=== PATIENT | male | born 1965 | race Caucasian/White ===

== ENCOUNTER 2016-04-27 19:17 | Emergency (ER) | payer MEDICAID, OTHER ==
[~2016-04-27] VITALS: Ht 177.8 cm; Wt 54.4 kg
[2016-04-27] MEDS ORDERED: IPRATROPIUM 0.5MG/ALBUTEROL 2.5MG INH SOL UD 3ML (DUONEB)(J7620) NEB ONE (23:00)
[2016-04-27 23:50] LABS: BASO % 0.7 % (0.0-1.0); EOS # 0.2 K/mm3 (0.0-0.50); EOS % 3.8 % (0.0-3.0); LARGE UNSTAINED CELL # 0.2 K/mm3 (0.0-0.4); LARGE UNSTAINED CELL % 3.7 % (0.0-4.0); LYMPH # 1.6 K/mm3 (1.5-4.5); LYMPH % 29.8 % (24.0-44.0); MEAN CORPUSCULAR HEMOGLOBIN 32.9 pg (27.0-33.0); MEAN CORPUSCULAR VOLUME 99.5 fl (80.0-96.0); MONO # 0.5 K/mm3 (0.0-0.8); MONO % 8.4 % (0.0-5.0); NEUTROPHILS # 2.9 K/mm3 (1.8-7.7); NEUTROPHILS % 53.7 % (36.0-66.0); PLATELET COUNT, AUTOMATED 275 k/mm3 (150-450); RED CELL DISTRIBUTION WIDTH 12.3 % (11.5-14.5); WHITE BLOOD COUNT 5.4 K/mm3 (4.0-10.0)
[2016-04-28 00:12] LABS: ANION GAP 10 MEQ/L (8-16); BLOOD UREA NITROGEN 4 MG/DL (7-18); CALCIUM LEVEL 8.8 MG/DL (8.5-10.1); CARBON DIOXIDE LEVEL 25 MEQ/L (21-32); CHLORIDE LEVEL 105 MEQ/L (98-107); GLOMERULAR FILTRATION RATE > 60.0 (>60); GLUCOSE, FASTING 82 MG/DL (70-105); POTASSIUM SERUM 4.5 MEQ/L (3.5-5.1); SODIUM LEVEL 140 MEQ/L (136-145)
[2016-04-28 00:19] LABS: ALBUMIN 3.9 GM/DL (3.2-5.2); ALBUMIN/GLOBULIN RATIO 1.05 (1.00-1.93); BILIRUBIN,DIRECT 0.2 MG/DL (0.0-0.2); BILIRUBIN,TOTAL 0.3 MG/DL (0.2-1.0); THYROXINE (T4) 6.2 UG/DL (4.5-12.0); TOTAL PROTEIN 7.6 GM/DL (6.4-8.2)
[2016-04-28] MEDS ORDERED: OXAZEPAM 15 MG CAP PO ONE (00:45)
[2016-04-28 00:54] VITALS: BP 156/104
--- NOTE | 2016-04-28 06:35 | ECGEPIP ---
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
--- NOTE | 2016-04-28 09:19 | REP ---
TWO VIEW CHEST: Two views of the chest were performed and compared to prior study of 12/15/2015 as well as other prior exams. Scattered fibrotic changes appear stable with no evidence of acute infiltrate. The heart is normal in size. Mediastinal silhouette is unchanged. Metallic plate and screws are seen in the lower cervical spine. IMPRESSION: Stable chronic findings without evidence of acute infiltrate. Signed by Jose Dykes MD 04/28/2016 04:13 P
== END 2016-04-28 00:57 | disposition home or self-care (01) ==
LOC: M ED 22:49
DX: R06.02 Shortness of breath (principal); F41.9 Anxiety disorder, unspecified; F10.10 Alcohol abuse, uncomplicated; R74.8 Abnormal levels of other serum enzymes; J44.9 Chronic obstructive pulmonary disease, unspecified; Z87.09 Personal history of other diseases of the respiratory system; F17.210 Nicotine dependence, cigarettes, uncomplicated

== ENCOUNTER → 2016-06-03 | Outpatient (CLI) | payer OTHER ==
--- NOTE | 2016-06-03 10:18 | REP ---
RIGHT UPPER QUADRANT ULTRASOUND: Real-time sonographic evaluation of the right upper quadrant performed. The gallbladder demonstrates no evidence of intraluminal sludge or calculi, wall thickening or pericholecystic fluid. There is no intrahepatic or extrahepatic biliary dilatation, common bile duct measuring 2 mm in diameter. The liver and pancreas demonstrate homogeneous echotexture with no gross mass. Right kidney demonstrates no hydronephrosis or nephrolithiasis with normal size at 11.2 cm in length. A right renal cyst measures 1.3 cm in diameter. IMPRESSION: Essentially negative right upper quadrant ultrasound.
== END ==
LOC: M WHC 08:58
PROVIDERS: ATTEND Physician Assistant
DX: R94.5 Abnormal results of liver function studies (principal)

== ENCOUNTER 2016-07-07 08:29 | Inpatient (IN) | payer OTHER ==
[~2016-07-07] VITALS: Ht 177.8 cm; Wt 58.6 kg
[2016-07-07] MEDS ORDERED: CELE20TA PO (08:45)
[2016-07-07] MEDS ORDERED: LORazepam 2 MG/ML VIAL (J2060) IV STA ×4 (09:05→13:52)
[2016-07-07] MEDS ORDERED: NS 1,000 ML IV ONE (09:15)
[2016-07-07 09:54] LABS: BASO % 0.4 % (0.0-1.0); EOS % 0.5 % (0.0-3.0); LARGE UNSTAINED CELL # 0.1 K/mm3 (0.0-0.4); LARGE UNSTAINED CELL % 1.3 % (0.0-4.0); LYMPH # 0.6 K/mm3 (1.5-4.5); LYMPH % 8.4 % (24.0-44.0); MEAN CORPUSCULAR HEMOGLOBIN 34.7 pg (27.0-33.0); MEAN CORPUSCULAR VOLUME 102.1 fl (80.0-96.0); MONO # 0.6 K/mm3 (0.0-0.8); MONO % 7.7 % (0.0-5.0); NEUTROPHILS # 5.9 K/mm3 (1.8-7.7); NEUTROPHILS % 81.7 % (36.0-66.0); PLATELET COUNT, AUTOMATED 247 k/mm3 (150-450); RED CELL DISTRIBUTION WIDTH 12.8 % (11.5-14.5); WHITE BLOOD COUNT 7.2 K/mm3 (4.0-10.0)
[2016-07-07 10:17] LABS: ALBUMIN 3.6 GM/DL (3.2-5.2); ALBUMIN/GLOBULIN RATIO 1.09 (1.00-1.93); ALKALINE PHOSPHATASE 132 U/L (45-117); ALT/SGPT 93 U/L (12-78); ANION GAP 9 MEQ/L (8-16); AST/SGOT 97 U/L (15-37); BILIRUBIN,DIRECT 0.2 MG/DL (0.0-0.2); BILIRUBIN,TOTAL 0.4 MG/DL (0.2-1.0); BLOOD UREA NITROGEN 5 MG/DL (7-18); CALCIUM LEVEL 8.6 MG/DL (8.5-10.1); CARBON DIOXIDE LEVEL 25 MEQ/L (21-32); CHLORIDE LEVEL 103 MEQ/L (98-107); CREATININE FOR GFR 0.71 MG/DL (0.70-1.30); GLOMERULAR FILTRATION RATE > 60.0 (>60); GLUCOSE, FASTING 107 MG/DL (70-105); POTASSIUM SERUM 4.6 MEQ/L (3.5-5.1); SODIUM LEVEL 137 MEQ/L (136-145); TOTAL PROTEIN 6.9 GM/DL (6.4-8.2)
[2016-07-07] MEDS ORDERED: ASPIRIN 81 MG CHEW TABLET PO ONE (12:00)
[2016-07-07] MEDS ORDERED: ISOVUE-370 76% 100ML VIAL (Q9967) As Ordered ONE (12:05)
--- NOTE | 2016-07-07 12:45 | REP ---
Clinical: Acute chest pain. Comparison: 10/04/2015 Technique: Axial contrast enhanced images from the thoracic inlet to the upper abdomen using 100 ml Isovue 370 intravenous contrast material with coronal and sagittal re-formations. Findings: Satisfactory enhancement of the pulmonary vasculature is achieved and no filling defects are identified to suggest pulmonary embolus. Thoracic aorta is normal caliber without aneurysm or dissection. Heart and pericardium are normal. There is evidence for moderate chronic COPD and emphysematous changes primarily involving the upper lung zones/apices with scattered areas of scarring/fibrosis. Findings are similar to prior examination. No acute pulmonary consolidation, nodule or mass lesion identified. No pleural effusion/reaction or pneumothorax. No significant axillary, hilar, or mediastinal adenopathy. Musculoskeletal structures without focal osseous abnormality. Impression: 1. No evidence for pulmonary embolus. 2. No acute pleuroparenchymal or mediastinal process. 3. Advanced COPD/emphysematous changes with scattered and predominantly apical scarring similar to 2016. Signed by Tam Roque MD 07/07/2016 12:36 P
--- NOTE | 2016-07-07 12:48 | REP ---
Clinical: Chest and abdominal pain. Technique: Axial contrast enhanced images from the thoracic inlet to the upper abdomen using 100 ml Isovue 370 intravenous contrast material with coronal and sagittal re-formations. Findings: Diffuse fatty infiltration the liver is appreciated without focal hepatic lesion identified. Spleen, pancreas, gallbladder, bilateral adrenal glands and kidneys are normal. The enteric system is without obstruction or acute inflammatory process. Scattered diverticula noted without acute diverticulitis. Pelvis demonstrates normal bladder and age appropriate prostate/seminal vesicles. No ascites. No free air. No intraperitoneal or retroperitoneal adenopathy. Mild/moderate atherosclerotic changes to the abdominal aorta and vasculature noted without aneurysm or dissection. Musculoskeletal structures without focal osseous abnormality. Lung bases demonstrate chronic changes. Visualized portions of the heart and pericardium normal. Impression: 1. Hepatosteatosis without focal hepatic lesion identified. 2. Colonic diverticula without acute diverticulitis. 3. No acute intra-abdominal or pelvic pathology otherwise appreciated. Signed by Tam Roque MD 07/07/2016 12:39 P
[2016-07-07] MEDS ORDERED: amLODIPine 5 MG TAB PO ONE (16:30)
[2016-07-07] MEDS ORDERED: ALBU17IN INH (18:43)
[2016-07-07] MEDS ORDERED: ACET-654 PO (18:43)
[2016-07-07] MEDS ORDERED: ALBUTEROL 90 MCG/ACT 8GM HFA INHALER INH PRN (19:00)
[2016-07-07] MEDS ORDERED: hydrALAZINE INJ 20 MG/ML VIAL IV ONE (19:00)
[2016-07-07 19:11] LABS: METHADONE URINE NEGATIVE (NEGATIVE)
[2016-07-07 20:00] VITALS: BP 159/87
[2016-07-07] MEDS: OXAZEPAM 10 MG CAP PO SCH (20:31)
[2016-07-07] MEDS: ENOXAPARIN 40 MG/0.4 ML SYRINGE (J1650) SC SCH (20:31)
[2016-07-07 21:00] VITALS: BP 154/69
[2016-07-07] MEDS ORDERED: MULTIVITAMIN -ADULT INJECTION 10 ML, THIAMINE INJection 100 MG, FOLIC ACID 1 MG in NS 1... IV ONE (21:00)
--- NOTE | 2016-07-07 21:09 | ECGEPIP ---
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
--- NOTE | 2016-07-07 21:19 | ECGEPIP ---
Stationary ECG Study 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 LAE CW 07/07/16 - RATE INCREASED Electronically Signed On 07-07-2016 21:18:56 EDT by Tyshawn Shelley
[2016-07-07] MEDS: ONDANSETRON 4MG/2ML VIAL (J2405) IV PRN (21:50)
[2016-07-07] MEDS: ACETAMINOPHEN TAB 650MG DOSE (2X325MG) PO PRN (21:51)
[2016-07-07 22:00] VITALS: BP 148/82
[2016-07-07 23:00] VITALS: BP 139/83
[2016-07-08] VITALS (12 sets, daily range): BP systolic 134–165; BP diastolic 75–101
[2016-07-08 05:01] LABS: BASO % 0.5 % (0.0-1.0); EOS # 0.1 K/mm3 (0.0-0.50); EOS % 1.7 % (0.0-3.0); LARGE UNSTAINED CELL # 0.1 K/mm3 (0.0-0.4); LYMPH # 1.1 K/mm3 (1.5-4.5); LYMPH % 18.7 % (24.0-44.0); MEAN CORPUSCULAR HEMOGLOBIN 34.6 pg (27.0-33.0); MEAN CORPUSCULAR HGB CONC 33.9 g/dl (32.0-36.5); MONO # 0.6 K/mm3 (0.0-0.8); MONO % 10.9 % (0.0-5.0); NEUTROPHILS # 3.7 K/mm3 (1.8-7.7); NEUTROPHILS % 66.2 % (36.0-66.0); PLATELET COUNT, AUTOMATED 203 k/mm3 (150-450); RED CELL DISTRIBUTION WIDTH 13.1 % (11.5-14.5); WHITE BLOOD COUNT 5.5 K/mm3 (4.0-10.0)
[2016-07-08 05:31] LABS: ALBUMIN 2.9 GM/DL (3.2-5.2); ALBUMIN/GLOBULIN RATIO 0.85 (1.00-1.93); ALKALINE PHOSPHATASE 114 U/L (45-117); ALT/SGPT 74 U/L (12-78); ANION GAP 6 MEQ/L (8-16); AST/SGOT 76 U/L (15-37); BILIRUBIN,TOTAL 0.6 MG/DL (0.2-1.0); BLOOD UREA NITROGEN 7 MG/DL (7-18); CALCIUM LEVEL 8.1 MG/DL (8.5-10.1); CARBON DIOXIDE LEVEL 27 MEQ/L (21-32); CHLORIDE LEVEL 105 MEQ/L (98-107); GLOMERULAR FILTRATION RATE > 60.0 (>60); GLUCOSE, FASTING 80 MG/DL (70-105); MAGNESIUM LEVEL 2.1 MG/DL (1.8-2.4); POTASSIUM SERUM 3.8 MEQ/L (3.5-5.1); SODIUM LEVEL 138 MEQ/L (136-145); TOTAL PROTEIN 6.3 GM/DL (6.4-8.2)
[2016-07-08] MEDS: OXAZEPAM 10 MG CAP PO SCH (08:06)
[2016-07-08] MEDS: CYANOCOBALAMIN 500 MCG TAB PO SCH (08:06)
[2016-07-08] MEDS: THIAMINE 100 MG TAB PO SCH (08:07)
[2016-07-08] MEDS: amLODIPine 5 MG TAB PO SCH (08:07)
[2016-07-08] MEDS: FOLIC ACID 1 MG TAB PO SCH (08:07)
[2016-07-08] MEDS: CitaloPRAM (CeleXA) 20 MG TAB PO SCH (08:07)
[2016-07-08] MEDS: ONDANSETRON 4MG/2ML VIAL (J2405) IV PRN ×2 (08:52→15:34)
--- NOTE | 2016-07-08 09:05 | IPNPDOC ---
Subjective Date Seen The patient was seen on 07/08/16. Subjective Chief Complaint/HPI The patient is a 51-year-old male admitted with a reason for visit of Alcohol Withdrawal Syndrome. Events since last encounter 51 yo male with past hx of ETOH abuse, had been sober for 16 years. recent relapse in last 6-9months due to anxiety. On wait list for [facility] for counseling. Drinks 6-12 beers throughout the day every day. Stopped drinking Thursday and started withdrawal symptoms: vomiting, shakes, sweats within a few hours. brought himself to ED yesterday morning for uncontrolled withdrawl symptoms. Was in contact with [facility] for detox admission, yet was wait- listed. Today notes improvement in symptoms with use of Serax, Ativan and Zofran prn Constitutional: Denies: Chills, Fever, Night Sweats Skin: Denies: Rash, Lesions, Breakdown Pulmonary: Denies: Dyspnea, Cough Cardiovascular: Denies: Chest Pain, Palpitations, Orthopnea, Paroxysmal Noc. Dyspnea, Lt Headedness Gastrointestinal: Reports: Nausea, Vomiting, Denies: Abdominal Pain, Diarrhea, Constipation Genitourinary: Denies: Dysuria, Frequency, Incontinence, Retention Psych: Reports: Anxiety, Denies: Thoughts of Self Harm Objective Physical Examination General Exam: Positive: Alert, No Acute Distress ENT Exam: Positive: Atraumatic, Mucous membr. moist/pink, Pharynx Normal Neck Exam: Positive: Supple, Negative: JVD, thyromegaly Chest Exam: Positive: Clear to auscultation, Normal air movement Heart Exam: Positive: Rate Normal, Regular Rhythm, Normal S1, Normal S2, Negative: Murmurs, Rubs Telemetry: Positive: No significant arrhythmia Abdomen Exam: Positive: Normal bowel sounds, Soft, Negative: Tenderness, Hepatospenomegaly Extremity Exam: Positive: Normal pulses, Negative: Clubbing, Cyanosis, Edema Skin Exam: Positive: Nl turgor and temperature, Negative: Rash, Breakdown Neuro Exam: Positive: Other (mild tremors noted. ) Psych Exam: Positive: Anxiety, Oriented x 3 Assessment /Plan Problems (1) Alcohol withdrawal syndrome Status: Acute Response to Treatment: Improving Problem Specific Plan: Monitor Clinically Problem Text: Continue with Serax, lorazepam prn. Monitor. (2) Alcohol abuse Status: Chronic Problem Text: will need addictions counseling post hospitalization. Consider long Serax taper as outpatient. (3) Anxiety reaction Status: Acute Problem Text: Was placed on Celexa outpatient in December 2015. Never followed up. (4) Elevated liver enzymes Status: Acute Problem Text: liver US. hepatitis panel pending. Plan/VTE VTE Prophylaxis Ordered?: Yes (Lovenox) Plan Attending note: I saw and evaluated the patient, and agree with the plan of care as discussed and documented by Kellie Mathew. Patient currently does not have a plan to stay sober. He attributes much of his drinking to his mood, however does not wish to change his medications until his withdrawal symptoms improved. He is currently on Celexa 10 mg daily. Mitchell Workman MD VS, I&O, 24H, [facility] Vital Signs/I&O Vital Signs Date Time Temp Pulse Resp B/P (MAP) Pulse Ox O2 Delivery O2 Flow Rate FiO2 07/08/16 08:07 106 145/95 07/08/16 08:06 99.1 18 96 Room Air I&O- Last 24 Hours up to 6 AM 07/08/16 05:59 Intake Total 1910 ml Output Total 0 ml Balance 1910 ml Laboratory Data 24H LABS Laboratory Tests 2 07/07/16 09:38: Anion Gap 9, Glomerular Filtration Rate > 60.0, Calcium Level 8.6, Aspartate Amino Transf (AST/SGOT) 97H, Alanine Aminotransferase (ALT/SGPT) 93H, Alkaline Phosphatase 132H, Total Bilirubin 0.4, Direct Bilirubin 0.2, Total Protein 6.9, Albumin 3.6, Albumin/Globulin Ratio 1.09, Thyroid Stimulating Hormone (TSH) 2.050, Salicylates Level 5.0, Acetaminophen Level < 2.0L, Ethyl Alcohol Level < 0.003 07/07/16 09:39: White Blood Count 7.2, Red Blood Count 4.72, Hemoglobin 16.4, Hematocrit 48.1, Mean Corpuscular Volume 102.1H, Mean Corpuscular Hemoglobin 34.7H, Mean Corpuscular Hemoglobin Concent 34.0, Red Cell Distribution Width 12.8, Platelet Count 247, Neutrophils (%) (Auto) 81.7H, Lymphocytes (%) (Auto) 8.4L, Monocytes (%) (Auto) 7.7H, Eosinophils (%) (Auto) 0.5, Basophils (%) (Auto) 0.4, Neutrophils # (Auto) 5.9, Lymphocytes # (Auto) 0.6L, Monocytes # (Auto) 0.6, Eosinophils # (Auto) 0.0, Basophils # (Auto) 0.0, Large Unclassified Cells % 1.3 , Large Unclassified Cells # 0.1, Total Creatine Kinase 78, Creatine Kinase MB 1.0, Creatine Kinase MB Relative Index 1.28, Troponin I < 0.02 07/07/16 14:18: Total Creatine Kinase 75, Creatine Kinase MB 1.0, Creatine Kinase MB Relative Index 1.33, Troponin I < 0.02 07/07/16 18:27: Urine Amphetamines Screen NEGATIVE, Urine Benzodiazepines Screen NEGATIVE, Urine Opiates Screen NEGATIVE, Urine Methadone Screen NEGATIVE, Urine Barbiturates Screen NEGATIVE, Urine Phencyclidine Screen NEGATIVE, Urine Cocaine Metabolite Screen NEGATIVE, Urine Cannabinoids Screen NEGATIVE 07/08/16 04:38: White Blood Count 5.5, Red Blood Count 4.31, Hemoglobin 14.9, Hematocrit 44.0, Mean Corpuscular Volume 102.0H, Mean Corpuscular Hemoglobin 34.6H, Mean Corpuscular Hemoglobin Concent 33.9, Red Cell Distribution Width 13.1, Platelet Count 203, Neutrophils (%) (Auto) 66.2H, Lymphocytes (%) (Auto) 18.7L, Monocytes (%) (Auto) 10.9H, Eosinophils (%) (Auto) 1.7, Basophils (%) (Auto) 0.5 , Neutrophils # (Auto) 3.7, Lymphocytes # (Auto) 1.1L, Monocytes # (Auto) 0.6, Eosinophils # (Auto) 0.1, Basophils # (Auto) 0.0, Large Unclassified Cells % 2.0 , Large Unclassified Cells # 0.1, Anion Gap 6L, Glomerular Filtration Rate > 60.0, Blood Urea Nitrogen 7, Creatinine 0.60L, Sodium Level 138, Potassium Level 3.8, Chloride Level 105, Carbon Dioxide Level 27, Calcium Level 8.1L, Aspartate Amino Transf (AST/SGOT) 76H, Alanine Aminotransferase (ALT/SGPT) 74, Alkaline Phosphatase 114, Total Bilirubin 0.6, Total Protein 6.3L, Albumin 2.9L , Magnesium Level 2.1, Albumin/Globulin Ratio 0.85L CBC/BMP Laboratory Tests 07/07/16 09:38 07/07/16 09:39 Red Blood Count 4.72, Mean Corpuscular Volume 102.1 H, Mean Corpuscular Hemoglobin 34.7 H, Mean Corpuscular Hemoglobin Concent 34.0, Red Cell Distribution Width 12.8, Neutrophils (%) (Auto) 81.7 H, Lymphocytes (%) (Auto) 8.4 L, Monocytes (%) (Auto) 7.7 H, Eosinophils (%) (Auto) 0.5, Basophils (%) ( Auto) 0.4, Neutrophils # (Auto) 5.9, Lymphocytes # (Auto) 0.6 L, Monocytes # ( Auto) 0.6, Eosinophils # (Auto) 0.0, Basophils # (Auto) 0.0 07/08/16 04:38 Red Blood Count 4.31, Mean Corpuscular Volume 102.0 H, Mean Corpuscular Hemoglobin 34.6 H, Mean Corpuscular Hemoglobin Concent 33.9, Red Cell Distribution Width 13.1, Neutrophils (%) (Auto) 66.2 H, Lymphocytes (%) (Auto) 18.7 L, Monocytes (%) (Auto) 10.9 H, Eosinophils (%) (Auto) 1.7, Basophils (%) ( Auto) 0.5, Neutrophils # (Auto) 3.7, Lymphocytes # (Auto) 1.1 L, Monocytes # ( Auto) 0.6, Eosinophils # (Auto) 0.1, Basophils # (Auto) 0.0, Calcium Level 8.1 L , Aspartate Amino Transf (AST/SGOT) 76 H, Alanine Aminotransferase (ALT/SGPT) 74 , Alkaline Phosphatase 114, Total Bilirubin 0.6, Total Protein 6.3 L, Albumin 2.9 L Radha Mathew July 08, 2016 09:05 MITCHELL WORKMAN MD July 11, 2016 13:56
[2016-07-08] MEDS: OXAZEPAM 15 MG CAP PO SCH ×2 (13:12→21:33)
[2016-07-08] MEDS: NS 1,000 ML IV SCH (15:32)
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
[2016-07-08] MEDS: ACETAMINOPHEN TAB 650MG DOSE (2X325MG) PO PRN (19:47)
[2016-07-08] MEDS: LORazepam 2 MG/ML VIAL (J2060) IV PRN (20:14)
[2016-07-08] MEDS: ENOXAPARIN 40 MG/0.4 ML SYRINGE (J1650) SC SCH (20:14)
[2016-07-08] MEDS ORDERED: SODIUM CHLORIDE NASAL 0.65% SPRAY BTL (OCEAN) PRN (20:15)
[2016-07-09] MEDS: NS 1,000 ML IV SCH (02:46)
[2016-07-09] MEDS: LORazepam 2 MG/ML VIAL (J2060) IV PRN ×4 (02:46→20:44)
[2016-07-09] MEDS: OXAZEPAM 15 MG CAP PO SCH ×3 (05:45→22:28)
[2016-07-09 05:59] LABS: BASO % 0.8 % (0.0-1.0); EOS # 0.1 K/mm3 (0.0-0.50); EOS % 2.4 % (0.0-3.0); LARGE UNSTAINED CELL # 0.2 K/mm3 (0.0-0.4); LARGE UNSTAINED CELL % 4.3 % (0.0-4.0); LYMPH # 1.3 K/mm3 (1.5-4.5); LYMPH % 26.1 % (24.0-44.0); MEAN CORPUSCULAR HEMOGLOBIN 34.7 pg (27.0-33.0); MEAN CORPUSCULAR HGB CONC 33.8 g/dl (32.0-36.5); MEAN CORPUSCULAR VOLUME 102.6 fl (80.0-96.0); MONO # 0.6 K/mm3 (0.0-0.8); MONO % 12.1 % (0.0-5.0); NEUTROPHILS # 2.6 K/mm3 (1.8-7.7); NEUTROPHILS % 54.3 % (36.0-66.0); PLATELET COUNT, AUTOMATED 206 k/mm3 (150-450); RED CELL DISTRIBUTION WIDTH 12.5 % (11.5-14.5); WHITE BLOOD COUNT 4.8 K/mm3 (4.0-10.0)
[2016-07-09 06:00] VITALS: BP 160/94
[2016-07-09 06:15] LABS: ALBUMIN 2.8 GM/DL (3.2-5.2); ALBUMIN/GLOBULIN RATIO 0.88 (1.00-1.93); ALKALINE PHOSPHATASE 102 U/L (45-117); ALT/SGPT 57 U/L (12-78); ANION GAP 4 MEQ/L (8-16); AST/SGOT 49 U/L (15-37); BILIRUBIN,TOTAL 0.6 MG/DL (0.2-1.0); BLOOD UREA NITROGEN 7 MG/DL (7-18); CALCIUM LEVEL 8.3 MG/DL (8.5-10.1); CARBON DIOXIDE LEVEL 30 MEQ/L (21-32); CHLORIDE LEVEL 107 MEQ/L (98-107); CREATININE FOR GFR 0.69 MG/DL (0.70-1.30); GLOMERULAR FILTRATION RATE > 60.0 (>60); GLUCOSE, FASTING 78 MG/DL (70-105); MAGNESIUM LEVEL 2.4 MG/DL (1.8-2.4); SODIUM LEVEL 141 MEQ/L (136-145)
--- NOTE | 2016-07-09 08:27 | IPNPDOC ---
Subjective Date Seen The patient was seen on 07/09/16. Subjective Chief Complaint/HPI The patient is a 51-year-old male admitted with a reason for visit of Alcohol Withdrawal Syndrome. Events since last encounter Patient states improving. Develops shakes and withdrawal symptoms intermittently. Received 2 doses of IV Lorazepam in last 12 hours. Tolerating Serax 15 mg po q 8 hrs. Also hx of smoking 1/2 to 1 ppd. Has nicotine patch at home, yet is not utilizing the patch at home. Constitutional: Denies: Chills, Fever, Night Sweats Pulmonary: Denies: Dyspnea, Cough Cardiovascular: Denies: Chest Pain, Palpitations, Orthopnea, Paroxysmal Noc. Dyspnea, Lt Headedness Gastrointestinal: Denies: Nausea, Vomiting, Abdominal Pain, Diarrhea, Constipation Psych: Reports: Mood Normal, Anxiety, Other Psych, Denies: Depression, Memory Issues Objective Physical Examination General Exam: Positive: Alert, No Acute Distress ENT Exam: Positive: Atraumatic, Mucous membr. moist/pink, Pharynx Normal Neck Exam: Positive: Supple, Negative: JVD, thyromegaly Chest Exam: Positive: Clear to auscultation, Normal air movement Heart Exam: Positive: Rate Normal, Regular Rhythm, Normal S1, Normal S2, Negative: Murmurs, Rubs Telemetry: Positive: No significant arrhythmia Abdomen Exam: Positive: Normal bowel sounds, Soft, Negative: Tenderness, Hepatospenomegaly Extremity Exam: Positive: Normal pulses, Negative: Clubbing, Cyanosis, Edema Skin Exam: Positive: Nl turgor and temperature, Negative: Rash, Breakdown Neuro Exam: Positive: Other (mild tremors noted. ) Psych Exam: Positive: Anxiety, Oriented x 3 Assessment /Plan Problems (1) Alcohol withdrawal syndrome Status: Acute Response to Treatment: Improving Problem Specific Plan: Monitor Clinically Problem Text: Continue with Serax, lorazepam prn. Monitor. PFS consulted to evaluate possibility of rehab/addictions counseling. Will add on Nicotine patch to assist with Nicotine withdrawal symptoms. (2) Alcohol abuse Status: Chronic Problem Text: will need addictions counseling post hospitalization. Consider long Serax taper as outpatient. (3) Anxiety reaction Status: Acute Problem Text: Was placed on Celexa outpatient in December 2015. Never followed up. (4) Elevated liver enzymes Status: Acute Problem Text: liver US. hepatitis panel pending. Plan/VTE VTE Prophylaxis Ordered?: Yes (Lovenox) Plan Attending note: I saw and evaluated the patient, and agree with plan of care as discussed and documented by Kellie Mathew. Patient continues to have significant withdrawal symptoms, and is on moderate dose of long-acting benzodiazepine. He will likely need several more days to taper off of this. Mitchell Workman MD VS, I&O, 24H, Fishbone Vital Signs/I&O Vital Signs Date Time Temp Pulse Resp B/P (MAP) Pulse Ox O2 Delivery O2 Flow Rate FiO2 07/09/16 06:00 97.6 71 18 160/94 (116) 97 07/08/16 20:25 Room Air I&O- Last 24 Hours up to 6 AM 07/09/16 05:59 Intake Total 1365 ml Output Total 1300 ml Balance 65 ml Laboratory Data 24H LABS Laboratory Tests 2 07/09/16 05:32: White Blood Count 4.8, Red Blood Count 4.31, Hemoglobin 15.0, Hematocrit 44.2, Mean Corpuscular Volume 102.6H, Mean Corpuscular Hemoglobin 34.7H, Mean Corpuscular Hemoglobin Concent 33.8, Red Cell Distribution Width 12.5, Platelet Count 206, Neutrophils (%) (Auto) 54.3, Lymphocytes (%) (Auto) 26.1, Monocytes ( %) (Auto) 12.1H, Eosinophils (%) (Auto) 2.4, Basophils (%) (Auto) 0.8, Neutrophils # (Auto) 2.6, Lymphocytes # (Auto) 1.3L, Monocytes # (Auto) 0.6, Eosinophils # (Auto) 0.1, Basophils # (Auto) 0.0, Large Unclassified Cells % 4.3H, Large Unclassified Cells # 0.2, Anion Gap 4L, Glomerular Filtration Rate > 60.0, Blood Urea Nitrogen 7, Creatinine 0.69L, Sodium Level 141, Potassium Level 4.0, Chloride Level 107, Carbon Dioxide Level 30, Calcium Level 8.3L, Aspartate Amino Transf (AST/SGOT) 49H, Alanine Aminotransferase (ALT/SGPT) 57, Alkaline Phosphatase 102, Total Bilirubin 0.6, Total Protein 6.0L, Albumin 2.8L , Magnesium Level 2.4, Albumin/Globulin Ratio 0.88L CBC/BMP Laboratory Tests 07/09/16 05:32 Red Blood Count 4.31, Mean Corpuscular Volume 102.6 H, Mean Corpuscular Hemoglobin 34.7 H, Mean Corpuscular Hemoglobin Concent 33.8, Red Cell Distribution Width 12.5, Neutrophils (%) (Auto) 54.3, Lymphocytes (%) (Auto) 26.1, Monocytes (%) (Auto) 12.1 H, Eosinophils (%) (Auto) 2.4, Basophils (%) ( Auto) 0.8, Neutrophils # (Auto) 2.6, Lymphocytes # (Auto) 1.3 L, Monocytes # ( Auto) 0.6, Eosinophils # (Auto) 0.1, Basophils # (Auto) 0.0, Calcium Level 8.3 L , Aspartate Amino Transf (AST/SGOT) 49 H, Alanine Aminotransferase (ALT/SGPT) 57 , Alkaline Phosphatase 102, Total Bilirubin 0.6, Total Protein 6.0 L, Albumin 2.8 L Radha Mathew July 09, 2016 08:27 MITCHELL WORKMAN MD July 11, 2016 13:58
[2016-07-09] MEDS: NICOTINE 14 MG/24 HR TRANSDERMAL TD SCH (08:43)
--- NOTE | 2016-07-09 09:33 | REP ---
Clinical: EtOH abuse with elevated liver function tests. Technique: Dykes scale ultrasound using curved array transducer. Findings: The liver and pancreas are normal in contour, size, and echogenicity without focal hepatic or pancreatic lesions identified. The gallbladder is normal without gallstones, wall thickening or pericholecystic fluid. No biliary ductal dilatation is appreciated, and the common bile duct measures 4.1 mm diameter. The right kidney is normal in reniform shape without hydronephrosis and measures 11.1 x 5.7 x 4.4 cm and includes 11 mm mid pole cyst. No ascites. Visualized portions of the abdominal aorta normal. Impression: Essentially normal right upper quadrant and gallbladder abdominal ultrasound. Signed by Tam Roque MD 07/09/2016 09:24 A
[2016-07-09] MEDS: CitaloPRAM (CeleXA) 20 MG TAB PO SCH (09:41)
[2016-07-09] MEDS: THIAMINE 100 MG TAB PO SCH (09:41)
[2016-07-09] MEDS: CYANOCOBALAMIN 500 MCG TAB PO SCH (09:41)
[2016-07-09] MEDS: FOLIC ACID 1 MG TAB PO SCH (09:41)
[2016-07-09] MEDS: amLODIPine 5 MG TAB PO SCH (09:42)
[2016-07-09 14:00] VITALS: BP 160/99
[2016-07-09 15:00] VITALS: BP 152/90
[2016-07-09 17:05] VITALS: BP 150/100
[2016-07-09] MEDS ORDERED: GABAPENTIN 300 MG CAP PO ONE (17:30)
--- NOTE | 2016-07-09 20:17 | ECGEPIP ---
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
[2016-07-09] MEDS: ENOXAPARIN 40 MG/0.4 ML SYRINGE (J1650) SC SCH (20:44)
[2016-07-09] MEDS: ACETAMINOPHEN TAB 650MG DOSE (2X325MG) PO PRN (20:55)
[2016-07-09 22:00] VITALS: BP 142/92
[2016-07-09] MEDS ORDERED: PERCOCET 5MG/325MG TAB PO ONE (22:30)
[2016-07-10] VITALS (8 sets, daily range): BP systolic 120–160; BP diastolic 69–93
[2016-07-10] MEDS: LORazepam 2 MG/ML VIAL (J2060) IV PRN ×2 (00:41→05:32)
[2016-07-10] MEDS ORDERED: PERCOCET 5MG/325MG TAB PO ONE ×2 (01:00→05:45)
[2016-07-10] MEDS: OXAZEPAM 15 MG CAP PO SCH (05:12)
[2016-07-10 05:58] LABS: BASO % 0.7 % (0.0-1.0); EOS # 0.1 K/mm3 (0.0-0.50); EOS % 2.1 % (0.0-3.0); LARGE UNSTAINED CELL # 0.2 K/mm3 (0.0-0.4); LARGE UNSTAINED CELL % 3.4 % (0.0-4.0); LYMPH # 1.9 K/mm3 (1.5-4.5); LYMPH % 33.9 % (24.0-44.0); MEAN CORPUSCULAR HEMOGLOBIN 34.5 pg (27.0-33.0); MEAN CORPUSCULAR VOLUME 101.4 fl (80.0-96.0); MONO # 0.5 K/mm3 (0.0-0.8); MONO % 9.3 % (0.0-5.0); NEUTROPHILS # 2.5 K/mm3 (1.8-7.7); NEUTROPHILS % 50.5 % (36.0-66.0); PLATELET COUNT, AUTOMATED 211 k/mm3 (150-450)
[2016-07-10 06:16] LABS: ALBUMIN/GLOBULIN RATIO 0.88 (1.00-1.93); ALKALINE PHOSPHATASE 102 U/L (45-117); ALT/SGPT 56 U/L (12-78); ANION GAP 5 MEQ/L (8-16); AST/SGOT 52 U/L (15-37); BILIRUBIN,TOTAL 0.4 MG/DL (0.2-1.0); BLOOD UREA NITROGEN 8 MG/DL (7-18); CALCIUM LEVEL 8.5 MG/DL (8.5-10.1); CARBON DIOXIDE LEVEL 28 MEQ/L (21-32); CHLORIDE LEVEL 106 MEQ/L (98-107); CREATININE FOR GFR 0.66 MG/DL (0.70-1.30); GLOMERULAR FILTRATION RATE > 60.0 (>60); GLUCOSE, FASTING 90 MG/DL (70-105); MAGNESIUM LEVEL 2.3 MG/DL (1.8-2.4); POTASSIUM SERUM 4.1 MEQ/L (3.5-5.1); SODIUM LEVEL 139 MEQ/L (136-145); TOTAL PROTEIN 6.4 GM/DL (6.4-8.2)
[2016-07-10] MEDS: NICOTINE 14 MG/24 HR TRANSDERMAL TD SCH (09:10)
[2016-07-10] MEDS: CYANOCOBALAMIN 500 MCG TAB PO SCH (09:10)
[2016-07-10] MEDS: FOLIC ACID 1 MG TAB PO SCH (09:11)
[2016-07-10] MEDS: THIAMINE 100 MG TAB PO SCH (09:11)
[2016-07-10] MEDS: amLODIPine 5 MG TAB PO SCH (09:11)
[2016-07-10] MEDS: CitaloPRAM (CeleXA) 20 MG TAB PO SCH (09:11)
[2016-07-10] MEDS: GABAPENTIN 300 MG CAP PO SCH ×2 (09:12→20:10)
--- NOTE | 2016-07-10 09:41 | IPNPDOC ---
Subjective Date Seen The patient was seen on 07/10/16. Subjective Chief Complaint/HPI The patient is a 51-year-old male admitted with a reason for visit of Alcohol Withdrawal Syndrome. Events since last encounter Developed back pain overnight requiring 3 doses of oxycodone. states back pain is chronic, located to lumbar spine. Continues with anxiety and agitation. Constitutional: Denies: Chills, Fever, Night Sweats Eyes: Denies: Pain, Vision change Gastrointestinal: Reports: Constipation (no BM x 4 days), Denies: Nausea, Vomiting, Abdominal Pain, Diarrhea Genitourinary: Denies: Dysuria, Frequency, Incontinence, Retention Hematologic: Denies: Bruising, Bleeding Excessively Endocrine: Denies: Polydipsia, Polyphagia, Polyuria, Heat Intolerance, Cold Intolerance, Other Endocrine Sx Musculoskeletal: Reports: Back Pain Psych: Reports: Anxiety, Denies: Thoughts of Self Harm, Anger, Thoughts of Harming Other Objective Physical Examination General Exam: Positive: Alert, No Acute Distress ENT Exam: Positive: Atraumatic, Mucous membr. moist/pink, Pharynx Normal Neck Exam: Positive: Supple, Negative: JVD, thyromegaly Chest Exam: Positive: Clear to auscultation, Normal air movement Heart Exam: Positive: Rate Normal, Regular Rhythm, Normal S1, Normal S2, Negative: Murmurs, Rubs Telemetry: Positive: No significant arrhythmia Abdomen Exam: Positive: Normal bowel sounds, Soft, Negative: Tenderness, Hepatospenomegaly Extremity Exam: Positive: Normal pulses, Negative: Clubbing, Cyanosis, Edema Skin Exam: Positive: Nl turgor and temperature, Negative: Rash, Breakdown Neuro Exam: Positive: Other (mild tremors noted. ) Psych Exam: Positive: Anxiety, Oriented x 3 Assessment /Plan Problems (1) Alcohol withdrawal syndrome Status: Acute Response to Treatment: Improving Problem Specific Plan: Monitor Clinically Problem Text: 07/10/2016: increase Serax to 20 mg po q 8 hrs. CIWA protocol in place. Continue with Serax, lorazepam prn. Monitor. PFS consulted to evaluate possibility of rehab/addictions counseling. Will add on Nicotine patch to assist with Nicotine withdrawal symptoms. (2) Alcohol abuse Status: Chronic Problem Text: will need addictions counseling post hospitalization. Consider long Serax taper as outpatient. (3) Anxiety reaction Status: Acute Problem Text: Worsening anxiety and agitation. Will consult psychiatry. Was placed on Celexa outpatient in December 2015. Never followed up. (4) Elevated liver enzymes Status: Acute Problem Text: 07/10/2016: liver US negative. hepatitis panel negative. liver US. hepatitis panel pending. (5) Back pain Status: Acute Problem Text: PT eval. NSAID and muscle relaxer Plan/VTE VTE Prophylaxis Ordered?: Yes (Lovenox) VS, I&O, 24H, Fishbone Vital Signs/I&O Vital Signs Date Time Temp Pulse Resp B/P (MAP) Pulse Ox O2 Delivery O2 Flow Rate FiO2 07/10/16 09:11 123/84 07/10/16 06:12 17 07/10/16 06:00 97.4 72 98 Room Air I&O- Last 24 Hours up to 6 AM 07/10/16 05:59 Intake Total 1740 ml Output Total 0 ml Balance 1740 ml Laboratory Data 24H LABS Laboratory Tests 2 07/10/16 05:43: White Blood Count 5.0, Red Blood Count 4.42, Hemoglobin 15.3, Hematocrit 44.9, Mean Corpuscular Volume 101.4H, Mean Corpuscular Hemoglobin 34.5H, Mean Corpuscular Hemoglobin Concent 34.0, Red Cell Distribution Width 13.0, Platelet Count 211, Neutrophils (%) (Auto) 50.5, Lymphocytes (%) (Auto) 33.9, Monocytes ( %) (Auto) 9.3H, Eosinophils (%) (Auto) 2.1, Basophils (%) (Auto) 0.7, Neutrophils # (Auto) 2.5, Lymphocytes # (Auto) 1.9, Monocytes # (Auto) 0.5, Eosinophils # (Auto) 0.1, Basophils # (Auto) 0.0, Large Unclassified Cells % 3.4 , Large Unclassified Cells # 0.2, Anion Gap 5L, Glomerular Filtration Rate > 60.0, Blood Urea Nitrogen 8, Creatinine 0.66L, Sodium Level 139, Potassium Level 4.1, Chloride Level 106, Carbon Dioxide Level 28, Calcium Level 8.5, Aspartate Amino Transf (AST/SGOT) 52H, Alanine Aminotransferase (ALT/SGPT) 56, Alkaline Phosphatase 102, Total Bilirubin 0.4, Total Protein 6.4, Albumin 3.0L, Magnesium Level 2.3, Albumin/Globulin Ratio 0.88L CBC/BMP Laboratory Tests 07/10/16 05:43 Red Blood Count 4.42, Mean Corpuscular Volume 101.4 H, Mean Corpuscular Hemoglobin 34.5 H, Mean Corpuscular Hemoglobin Concent 34.0, Red Cell Distribution Width 13.0, Neutrophils (%) (Auto) 50.5, Lymphocytes (%) (Auto) 33.9, Monocytes (%) (Auto) 9.3 H, Eosinophils (%) (Auto) 2.1, Basophils (%) ( Auto) 0.7, Neutrophils # (Auto) 2.5, Lymphocytes # (Auto) 1.9, Monocytes # (Auto ) 0.5, Eosinophils # (Auto) 0.1, Basophils # (Auto) 0.0, Calcium Level 8.5, Aspartate Amino Transf (AST/SGOT) 52 H, Alanine Aminotransferase (ALT/SGPT) 56, Alkaline Phosphatase 102, Total Bilirubin 0.4, Total Protein 6.4, Albumin 3.0 L Radha Mathew July 10, 2016 09:41
[2016-07-10] MEDS: CYCLOBENZAPRINE 10 MG TAB PO SCH ×3 (10:17→20:10)
[2016-07-10] MEDS: OXAZEPAM 10 MG CAP PO SCH ×2 (15:50→21:06)
[2016-07-10] MEDS: ONDANSETRON 4MG/2ML VIAL (J2405) IV PRN (20:10)
[2016-07-10] MEDS: ENOXAPARIN 40 MG/0.4 ML SYRINGE (J1650) SC SCH (20:11)
[2016-07-11] VITALS (10 sets, daily range): BP systolic 120–162; BP diastolic 69–90
[2016-07-11] MEDS: OXAZEPAM 10 MG CAP PO SCH (05:10)
[2016-07-11 06:20] LABS: BASO % 0.8 % (0.0-1.0); EOS # 0.1 K/mm3 (0.0-0.50); EOS % 2.2 % (0.0-3.0); LARGE UNSTAINED CELL # 0.2 K/mm3 (0.0-0.4); LARGE UNSTAINED CELL % 2.8 % (0.0-4.0); LYMPH # 1.5 K/mm3 (1.5-4.5); LYMPH % 25.2 % (24.0-44.0); MEAN CORPUSCULAR HEMOGLOBIN 34.5 pg (27.0-33.0); MEAN CORPUSCULAR HGB CONC 32.8 g/dl (32.0-36.5); MEAN CORPUSCULAR VOLUME 105.1 fl (80.0-96.0); MONO # 0.6 K/mm3 (0.0-0.8); MONO % 10.3 % (0.0-5.0); NEUTROPHILS # 3.6 K/mm3 (1.8-7.7); NEUTROPHILS % 58.7 % (36.0-66.0); PLATELET COUNT, AUTOMATED 244 k/mm3 (150-450)
[2016-07-11 06:37] LABS: ALBUMIN 2.8 GM/DL (3.2-5.2); ALBUMIN/GLOBULIN RATIO 0.85 (1.00-1.93); ALKALINE PHOSPHATASE 96 U/L (45-117); ALT/SGPT 52 U/L (12-78); ANION GAP 5 MEQ/L (8-16); AST/SGOT 47 U/L (15-37); BILIRUBIN,TOTAL 0.2 MG/DL (0.2-1.0); BLOOD UREA NITROGEN 10 MG/DL (7-18); CALCIUM LEVEL 8.4 MG/DL (8.5-10.1); CARBON DIOXIDE LEVEL 29 MEQ/L (21-32); CHLORIDE LEVEL 108 MEQ/L (98-107); CREATININE FOR GFR 0.82 MG/DL (0.70-1.30); GLOMERULAR FILTRATION RATE > 60.0 (>60); GLUCOSE, FASTING 96 MG/DL (70-105); MAGNESIUM LEVEL 2.2 MG/DL (1.8-2.4); POTASSIUM SERUM 4.1 MEQ/L (3.5-5.1); SODIUM LEVEL 142 MEQ/L (136-145); TOTAL PROTEIN 6.1 GM/DL (6.4-8.2)
[2016-07-11] MEDS ORDERED: GABA-282 PO (08:48)
[2016-07-11] MEDS ORDERED: NICO14PA TD (08:48)
[2016-07-11] MEDS ORDERED: AMLO5TAB2 PO (08:48)
[2016-07-11] MEDS ORDERED: FOLI1TAB2 PO (08:48)
[2016-07-11] MEDS ORDERED: THIA100TA PO (08:48)
[2016-07-11] MEDS ORDERED: OXAZ10CA PO (08:48)
[2016-07-11] MEDS: amLODIPine 5 MG TAB PO SCH (09:06)
[2016-07-11] MEDS: THIAMINE 100 MG TAB PO SCH (09:06)
[2016-07-11] MEDS: FOLIC ACID 1 MG TAB PO SCH (09:06)
[2016-07-11] MEDS: CYANOCOBALAMIN 500 MCG TAB PO SCH (09:06)
[2016-07-11] MEDS: CYCLOBENZAPRINE 10 MG TAB PO SCH (09:06)
[2016-07-11] MEDS: CitaloPRAM (CeleXA) 20 MG TAB PO SCH (09:06)
[2016-07-11] MEDS: GABAPENTIN 300 MG CAP PO SCH ×2 (09:07→21:21)
[2016-07-11] MEDS: NICOTINE 14 MG/24 HR TRANSDERMAL TD SCH (09:07)
[2016-07-11] MEDS: OXAZEPAM 15 MG CAP PO SCH ×2 (13:31→21:21)
[2016-07-11] MEDS: ACETAMINOPHEN TAB 650MG DOSE (2X325MG) PO PRN ×2 (13:32→18:35)
--- NOTE | 2016-07-11 14:10 | IPNPDOC ---
Subjective Date Seen The patient was seen on 07/11/16. Subjective Chief Complaint/HPI The patient is a 51-year-old male admitted with a reason for visit of Alcohol Withdrawal Syndrome. Events since last encounter Patient states that he feels well today. Withdrawal symptoms have improved. Yesterday evening, he reported an episode of substernal pressure and a globus sensation in his throat. He attributes this to anxiety. The pain resolves spontaneously. However, he reports this happening again today. Constitutional: Denies: Chills, Fever, Malaise, Night Sweats ENT: Reports: Head Aches Cardiovascular: Reports: Chest Pain (patient reports no associated symptoms), Denies: Palpitations Gastrointestinal: Denies: Nausea, Vomiting, Abdominal Pain, Diarrhea, Constipation Genitourinary: Denies: Dysuria Other systems 10 point review systems otherwise negative Objective Physical Examination General Exam: Positive: Alert, No Acute Distress ENT Exam: Positive: Atraumatic, Mucous membr. moist/pink, Pharynx Normal Neck Exam: Positive: Supple, Negative: JVD, thyromegaly Chest Exam: Positive: Clear to auscultation, Normal air movement Heart Exam: Positive: Rate Normal, Regular Rhythm, Normal S1, Normal S2, Negative: Murmurs, Rubs Telemetry: Positive: No significant arrhythmia Abdomen Exam: Positive: Normal bowel sounds, Soft, Negative: Tenderness, Hepatospenomegaly Extremity Exam: Positive: Normal pulses, Negative: Clubbing, Cyanosis, Edema Skin Exam: Positive: Nl turgor and temperature, Negative: Rash, Breakdown Neuro Exam: Positive: Other (mild tremors noted. ) Psych Exam: Positive: Anxiety, Oriented x 3 Assessment /Plan Problems (1) Alcohol withdrawal syndrome Status: Acute Response to Treatment: Improving Problem Specific Plan: Monitor Clinically Problem Text: CIWA protocol in place. Continue long acting benzo. PFS consulted to evaluate possibility of rehab/addictions counseling. (2) Alcohol abuse Status: Chronic Problem Text: Will need addictions counseling post hospitalization. Patient does not currently have a plan to remain sober after discharge. Patient is feeling better today, and would like to try something different for his mood. -Continue gabapentin for withdrawal symptoms - stop celexa; start effexor -Tapering Serax (3) Anxiety reaction Status: Acute Problem Text: Worsening anxiety and agitation. Will consult psychiatry. Was placed on Celexa outpatient in December 2015. Never followed up. (4) Elevated liver enzymes Status: Acute Problem Text: liver US normal, hepatitis panel negative. Liver enzymes continued to downtrend. Most likely secondary to alcoholic hepatitis. (5) Back pain Status: Acute Problem Text: PT eval. NSAID. Discontinue muscle relaxer, as this may interact with his SSRI/SNRI Plan/VTE VTE Prophylaxis Ordered?: Yes (Lovenox) VS, I&O, 24H, Fishbone Vital Signs/I&O Vital Signs Date Time Temp Pulse Resp B/P (MAP) Pulse Ox O2 Delivery O2 Flow Rate FiO2 07/11/16 13:25 98.5 77 18 162/89 (113) 98 Room Air I&O- Last 24 Hours up to 6 AM 07/11/16 06:00 Intake Total 720 ml Output Total 225 ml Balance 495 ml Laboratory Data 24H LABS Laboratory Tests 2 07/11/16 05:34: White Blood Count 6.0, Red Blood Count 4.26L, Hemoglobin 14.7, Hematocrit 44.7, Mean Corpuscular Volume 105.1H, Mean Corpuscular Hemoglobin 34.5H, Mean Corpuscular Hemoglobin Concent 32.8, Red Cell Distribution Width 13.0, Platelet Count 244, Neutrophils (%) (Auto) 58.7, Lymphocytes (%) (Auto) 25.2, Monocytes ( %) (Auto) 10.3H, Eosinophils (%) (Auto) 2.2, Basophils (%) (Auto) 0.8, Neutrophils # (Auto) 3.6, Lymphocytes # (Auto) 1.5, Monocytes # (Auto) 0.6, Eosinophils # (Auto) 0.1, Basophils # (Auto) 0.0, Large Unclassified Cells % 2.8 , Large Unclassified Cells # 0.2, Anion Gap 5L, Glomerular Filtration Rate > 60.0, Blood Urea Nitrogen 10, Creatinine 0.82, Sodium Level 142, Potassium Level 4.1, Chloride Level 108H, Carbon Dioxide Level 29, Calcium Level 8.4L, Aspartate Amino Transf (AST/SGOT) 47H, Alanine Aminotransferase (ALT/SGPT) 52, Alkaline Phosphatase 96, Total Bilirubin 0.2, Total Protein 6.1L, Albumin 2.8L, Magnesium Level 2.2, Albumin/Globulin Ratio 0.85L CBC/BMP Laboratory Tests 07/11/16 05:34 Red Blood Count 4.26 L, Mean Corpuscular Volume 105.1 H, Mean Corpuscular Hemoglobin 34.5 H, Mean Corpuscular Hemoglobin Concent 32.8, Red Cell Distribution Width 13.0, Neutrophils (%) (Auto) 58.7, Lymphocytes (%) (Auto) 25.2, Monocytes (%) (Auto) 10.3 H, Eosinophils (%) (Auto) 2.2, Basophils (%) ( Auto) 0.8, Neutrophils # (Auto) 3.6, Lymphocytes # (Auto) 1.5, Monocytes # (Auto ) 0.6, Eosinophils # (Auto) 0.1, Basophils # (Auto) 0.0, Calcium Level 8.4 L, Aspartate Amino Transf (AST/SGOT) 47 H, Alanine Aminotransferase (ALT/SGPT) 52, Alkaline Phosphatase 96, Total Bilirubin 0.2, Total Protein 6.1 L, Albumin 2.8 L RICHARDSON WORKMAN MD July 11, 2016 14:10
--- NOTE | 2016-07-11 15:18 | ECGEPIP ---
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
[2016-07-11] MEDS: OMEPRAZOLE 20 MG CAP PO SCH (15:35)
[2016-07-11] MEDS: raNITIdine SYRUP 150 MG/10 ML UDC PO SCH (15:35)
[2016-07-11] MEDS: NAPROXEN 250 MG TAB PO PRN (15:36)
[2016-07-11] MEDS: LORazepam 2 MG/ML VIAL (J2060) IV PRN (18:36)
[2016-07-11] MEDS ORDERED: VENLAFAXINE **XR** 37.5 MG CAPSULE PO SCH (21:00)
--- NOTE | 2016-07-11 21:04 | DSES ---
DATE OF ADMISSION: 07/07/2016 DATE OF DISCHARGE: 07/11/2016 ATTENDING PHYSICIAN: Dr. Mitchell Galloway. PRIMARY CARE PHYSICIAN: Omkar Goff. HISTORY OF PRESENT ILLNESS: This is a 42-year-old male who presented to [facility] emergency room due to experiencing alcohol withdrawal symptoms. The patient has a longstanding history of alcoholism and was sober for approximately 16-17 years. However, recently this fall the patient had significant relapse secondary to anxiety. States he drinks all day, approximately 6-12 beers per day. States he drinks no more than 12 beers per day. The patient decided to stop drinking two nights prior to presenting to the emergency room. In the morning started having some weakness, fevers, chills, night sweats. Denies dizziness or lightheadedness. Did express agitation and tremors. The patient was subsequently admitted. HOSPITAL COURSE: The patient was placed on initially Serax 10 mg by mouth twice a day, and this was slowly increased secondary to patient's agitation, anxiety and tremulous symptoms up to 20 mg by mouth every eight hours. His clinical institute withdrawal assessment (CIWA) scores have improved, and most recent is down to one. The patient did resume his citalopram. Did receive naproxen and Flexeril for some lumbar spine back pain which is chronic. IMAGING: CT angiogram was obtained of the chest. No evidence for pulmonary embolus. It was noted that the patient does have advanced chronic obstructive pulmonary disease (COPD) and emphysematous changes with scattered scarring. This is unchanged compared to his study in 2016. CT abdomen/pelvis does show hepatosteatosis without focal hepatic lesion identified, and some colonic diverticula. No active diverticulitis. Liver ultrasound completed and was negative for abnormalities to the liver, gallbladder or kidneys. CONSULTATIONS: None. PHYSICAL EXAMINATION: On physical exam today, denies chest pain, headache, blurred vision, dizziness, shortness of breath. States his anxiety feels well controlled. He continues to have some mild fatigue; otherwise feels well. VITAL SIGNS: Blood pressure 132/82, oxygen saturation 97% on room air. Respiratory rate 19, heart rate 77, temperature 97.2. HEENT: Neck is supple without lymphadenopathy or jugular venous distention (JVD) . CARDIOVASCULAR: Heart rate rhythm regular. PULMONARY: Lungs are clear. ABDOMEN: Soft, nontender. NEUROLOGIC: The patient has no tremors, no nystagmus. Extraocular movement intact smooth and controlled. PSYCHIATRIC: The patient has some apparent mild underlying anxiety. However, conversation is appropriate. The patient maintains eye contact and speech is coherent. ASSESSMENT: 1. Alcoholism. 2. Hypertension. 3. Chronic back pain. 4. Transaminitis. 5. Anxiety. PLAN: The patient will be discharged home. He will attend addictions clinic at [facility] on Thursday as a walk-in. The patient is agreeable to attending. We also encourage that he attend Alcoholics Anonymous (AA) meetings or obtain a sponsor over the weekend. Diet is as tolerated. Activity as tolerated. Followup with primary care provider (PCP)within the next week to consider weaning Serax dosing. MEDICATIONS: - amlodipine 5 mg by mouth daily - folic acid 1 mg by mouth daily - gabapentin 300 mg by mouth twice a day - nicotine transdermal 14 mg one patch transdermal daily, remove at bedtime - oxazepam 20 mg by mouth every eight hours, maximum daily dose of three, #21 caps were given; patient advised to attend his followup to wean down on his oxazepam dosing - thiamine 100 mg by mouth daily - acetaminophen 650 mg by mouth every six hours as needed for pain - albuterol sulfate two puffs four times a day as needed for shortness of breath - citalopram 20 mg by mouth daily The patient is discharged in stable and satisfactory condition with no further questions at time of discharge. ADDENDUM: Patient PCP concerned about DC home with Oxazepam. Patient has hx of non-compliance and recurrent ETOH use. DC HLED until weaned off of Oxezepam. MTDD
[2016-07-11] MEDS: ENOXAPARIN 40 MG/0.4 ML SYRINGE (J1650) SC SCH (21:21)
[2016-07-12] VITALS (8 sets, daily range): BP systolic 132–176; BP diastolic 80–94
[2016-07-12] MEDS: LORazepam 2 MG/ML VIAL (J2060) IV PRN ×3 (00:01→19:43)
[2016-07-12] MEDS: ACETAMINOPHEN TAB 650MG DOSE (2X325MG) PO PRN ×2 (04:16→19:42)
[2016-07-12] MEDS: OXAZEPAM 15 MG CAP PO SCH ×2 (05:31→13:37)
[2016-07-12 05:42] LABS: BASO % 0.6 % (0.0-1.0); EOS # 0.1 K/mm3 (0.0-0.50); EOS % 2.3 % (0.0-3.0); LARGE UNSTAINED CELL # 0.2 K/mm3 (0.0-0.4); LARGE UNSTAINED CELL % 2.5 % (0.0-4.0); LYMPH # 1.5 K/mm3 (1.5-4.5); LYMPH % 24.9 % (24.0-44.0); MEAN CORPUSCULAR HEMOGLOBIN 34.6 pg (27.0-33.0); MEAN CORPUSCULAR HGB CONC 32.7 g/dl (32.0-36.5); MEAN CORPUSCULAR VOLUME 105.6 fl (80.0-96.0); MONO # 0.7 K/mm3 (0.0-0.8); MONO % 11.5 % (0.0-5.0); NEUTROPHILS # 3.5 K/mm3 (1.8-7.7); NEUTROPHILS % 58.3 % (36.0-66.0); PLATELET COUNT, AUTOMATED 265 k/mm3 (150-450)
[2016-07-12 05:55] LABS: ALKALINE PHOSPHATASE 89 U/L (45-117); ALT/SGPT 46 U/L (12-78); ANION GAP 4 MEQ/L (8-16); AST/SGOT 36 U/L (15-37); BILIRUBIN,TOTAL 0.2 MG/DL (0.2-1.0); BLOOD UREA NITROGEN 12 MG/DL (7-18); CALCIUM LEVEL 8.4 MG/DL (8.5-10.1); CARBON DIOXIDE LEVEL 31 MEQ/L (21-32); CHLORIDE LEVEL 106 MEQ/L (98-107); CREATININE FOR GFR 0.72 MG/DL (0.70-1.30); GLOMERULAR FILTRATION RATE > 60.0 (>60); GLUCOSE, FASTING 111 MG/DL (70-105); MAGNESIUM LEVEL 2.3 MG/DL (1.8-2.4); POTASSIUM SERUM 4.5 MEQ/L (3.5-5.1); SODIUM LEVEL 141 MEQ/L (136-145)
[2016-07-12] MEDS: raNITIdine SYRUP 150 MG/10 ML UDC PO SCH (09:07)
[2016-07-12] MEDS: NICOTINE 14 MG/24 HR TRANSDERMAL TD SCH (09:08)
[2016-07-12] MEDS: OMEPRAZOLE 20 MG CAP PO SCH (09:08)
[2016-07-12] MEDS: GABAPENTIN 300 MG CAP PO SCH ×2 (09:08→21:11)
[2016-07-12] MEDS: CYANOCOBALAMIN 500 MCG TAB PO SCH (09:08)
[2016-07-12] MEDS: amLODIPine 5 MG TAB PO SCH (09:08)
[2016-07-12] MEDS: FOLIC ACID 1 MG TAB PO SCH (09:09)
[2016-07-12] MEDS: THIAMINE 100 MG TAB PO SCH (09:09)
--- NOTE | 2016-07-12 15:12 | IPNPDOC ---
Subjective Date Seen The patient was seen on 07/12/16. Subjective Chief Complaint/HPI The patient is a 51-year-old male admitted with a reason for visit of Alcohol Withdrawal Syndrome. Objective Physical Examination General Exam: Positive: Alert, No Acute Distress ENT Exam: Positive: Atraumatic, Mucous membr. moist/pink, Pharynx Normal Neck Exam: Positive: Supple, Negative: JVD, thyromegaly Chest Exam: Positive: Clear to auscultation, Normal air movement Heart Exam: Positive: Rate Normal, Regular Rhythm, Normal S1, Normal S2, Negative: Murmurs, Rubs Telemetry: Positive: No significant arrhythmia Abdomen Exam: Positive: Normal bowel sounds, Soft, Negative: Tenderness, Hepatospenomegaly Extremity Exam: Positive: Normal pulses, Negative: Clubbing, Cyanosis, Edema Skin Exam: Positive: Nl turgor and temperature, Negative: Rash, Breakdown Neuro Exam: Positive: Other (mild tremors noted. ) Psych Exam: Positive: Anxiety, Oriented x 3 Assessment /Plan Problems (1) Alcohol withdrawal syndrome Status: Acute Response to Treatment: Improving Problem Specific Plan: Monitor Clinically Problem Text: 07/12/16 admitted since 07/07/16; therefore, wean oxazepam 15 TID to 10 TID-per PCP, would NOT dc on benzo taper given abuse risk. Patient prefers to add wd medication; therefore, + naltrexone (no active hepatitis nor narcotic use) (2) Alcohol abuse Status: Chronic Problem Text: Will need addictions counseling post hospitalization. Patient does not currently have a plan to remain sober after discharge. Patient is feeling better today, and would like to try something different for his mood. (3) Anxiety reaction Status: Acute Response to Treatment: Stable Problem Text: 07/11 changed citalo 20 to venla 37.5 (07/12 to 75) Plan/VTE VTE Prophylaxis Ordered?: Yes (Lovenox) Disposition dc home 07/14 off benzos c outpatient Addiction Services and AA f/u VS, I&O, 24H, Fishbone Vital Signs/I&O Vital Signs Date Time Temp Pulse Resp B/P (MAP) Pulse Ox O2 Delivery O2 Flow Rate FiO2 07/12/16 12:00 77 132/86 07/11/16 22:00 97.6 17 98 Room Air I&O- Last 24 Hours up to 6 AM 07/12/16 06:00 Intake Total 1560 ml Output Total 0 ml Balance 1560 ml Laboratory Data 24H LABS Laboratory Tests 2 07/12/16 05:00: White Blood Count 6.0, Red Blood Count 4.36, Hemoglobin 15.1, Hematocrit 46.1, Mean Corpuscular Volume 105.6H, Mean Corpuscular Hemoglobin 34.6H, Mean Corpuscular Hemoglobin Concent 32.7, Red Cell Distribution Width 13.0, Platelet Count 265, Neutrophils (%) (Auto) 58.3, Lymphocytes (%) (Auto) 24.9, Monocytes ( %) (Auto) 11.5H, Eosinophils (%) (Auto) 2.3, Basophils (%) (Auto) 0.6, Neutrophils # (Auto) 3.5, Lymphocytes # (Auto) 1.5, Monocytes # (Auto) 0.7, Eosinophils # (Auto) 0.1, Basophils # (Auto) 0.0, Large Unclassified Cells % 2.5 , Large Unclassified Cells # 0.2, Anion Gap 4L, Glomerular Filtration Rate > 60.0, Blood Urea Nitrogen 12, Creatinine 0.72, Sodium Level 141, Potassium Level 4.5, Chloride Level 106, Carbon Dioxide Level 31, Calcium Level 8.4L, Aspartate Amino Transf (AST/SGOT) 36, Alanine Aminotransferase (ALT/SGPT) 46, Alkaline Phosphatase 89, Total Bilirubin 0.2, Total Protein 6.0L, Albumin 3.0L, Magnesium Level 2.3, Albumin/Globulin Ratio 1.00 CBC/BMP Laboratory Tests 07/12/16 05:00 Red Blood Count 4.36, Mean Corpuscular Volume 105.6 H, Mean Corpuscular Hemoglobin 34.6 H, Mean Corpuscular Hemoglobin Concent 32.7, Red Cell Distribution Width 13.0, Neutrophils (%) (Auto) 58.3, Lymphocytes (%) (Auto) 24.9, Monocytes (%) (Auto) 11.5 H, Eosinophils (%) (Auto) 2.3, Basophils (%) ( Auto) 0.6, Neutrophils # (Auto) 3.5, Lymphocytes # (Auto) 1.5, Monocytes # (Auto ) 0.7, Eosinophils # (Auto) 0.1, Basophils # (Auto) 0.0, Calcium Level 8.4 L, Aspartate Amino Transf (AST/SGOT) 36, Alanine Aminotransferase (ALT/SGPT) 46, Alkaline Phosphatase 89, Total Bilirubin 0.2, Total Protein 6.0 L, Albumin 3.0 L Jese Gordon M.D. July 12, 2016 15:12
[2016-07-12] MEDS: ENOXAPARIN 40 MG/0.4 ML SYRINGE (J1650) SC SCH (21:11)
[2016-07-12] MEDS: OXAZEPAM 10 MG CAP PO SCH (21:11)
[2016-07-12] MEDS: NAPROXEN 250 MG TAB PO PRN (21:11)
[2016-07-12] MEDS: VENLAFAXINE **XR** 75MG CAPSULE PO SCH (21:11)
[2016-07-12] MEDS: hydrOXYzine 25 MG TAB PO PRN (21:11)
[2016-07-13] VITALS (8 sets, daily range): BP systolic 125–140; BP diastolic 82–90
[2016-07-13] MEDS: OXAZEPAM 10 MG CAP PO SCH ×2 (05:45→14:24)
[2016-07-13 06:22] LABS: BASO % 0.8 % (0.0-1.0); EOS # 0.1 K/mm3 (0.0-0.50); EOS % 1.9 % (0.0-3.0); LARGE UNSTAINED CELL # 0.2 K/mm3 (0.0-0.4); LARGE UNSTAINED CELL % 3.6 % (0.0-4.0); LYMPH # 1.6 K/mm3 (1.5-4.5); LYMPH % 24.6 % (24.0-44.0); MEAN CORPUSCULAR HEMOGLOBIN 34.4 pg (27.0-33.0); MEAN CORPUSCULAR HGB CONC 32.3 g/dl (32.0-36.5); MEAN CORPUSCULAR VOLUME 106.5 fl (80.0-96.0); MONO # 0.6 K/mm3 (0.0-0.8); MONO % 9.6 % (0.0-5.0); NEUTROPHILS # 3.8 K/mm3 (1.8-7.7); NEUTROPHILS % 59.6 % (36.0-66.0); PLATELET COUNT, AUTOMATED 305 k/mm3 (150-450); RED CELL DISTRIBUTION WIDTH 12.9 % (11.5-14.5); WHITE BLOOD COUNT 6.3 K/mm3 (4.0-10.0)
[2016-07-13 07:07] LABS: ALBUMIN 3.2 GM/DL (3.2-5.2); ALBUMIN/GLOBULIN RATIO 0.94 (1.00-1.93); ALKALINE PHOSPHATASE 86 U/L (45-117); ALT/SGPT 47 U/L (12-78); ANION GAP 7 MEQ/L (8-16); AST/SGOT 42 U/L (15-37); BILIRUBIN,TOTAL 0.2 MG/DL (0.2-1.0); BLOOD UREA NITROGEN 10 MG/DL (7-18); CALCIUM LEVEL 8.6 MG/DL (8.5-10.1); CARBON DIOXIDE LEVEL 27 MEQ/L (21-32); CHLORIDE LEVEL 106 MEQ/L (98-107); CREATININE FOR GFR 0.61 MG/DL (0.70-1.30); GLOMERULAR FILTRATION RATE > 60.0 (>60); GLUCOSE, FASTING 95 MG/DL (70-105); MAGNESIUM LEVEL 2.4 MG/DL (1.8-2.4); POTASSIUM SERUM 4.2 MEQ/L (3.5-5.1); SODIUM LEVEL 140 MEQ/L (136-145); TOTAL PROTEIN 6.6 GM/DL (6.4-8.2)
[2016-07-13] MEDS: GABAPENTIN 300 MG CAP PO SCH ×2 (09:14→20:04)
[2016-07-13] MEDS: OMEPRAZOLE 20 MG CAP PO SCH (09:14)
[2016-07-13] MEDS: NALTREXONE 50 MG TAB PO SCH (09:14)
[2016-07-13] MEDS: FOLIC ACID 1 MG TAB PO SCH (09:14)
[2016-07-13] MEDS: CYANOCOBALAMIN 500 MCG TAB PO SCH (09:14)
[2016-07-13] MEDS: amLODIPine 5 MG TAB PO SCH (09:15)
[2016-07-13] MEDS: raNITIdine SYRUP 150 MG/10 ML UDC PO SCH (09:15)
[2016-07-13] MEDS: hydrOXYzine 25 MG TAB PO PRN ×2 (09:15→17:40)
[2016-07-13] MEDS: NICOTINE 14 MG/24 HR TRANSDERMAL TD SCH (09:15)
[2016-07-13] MEDS: THIAMINE 100 MG TAB PO SCH (09:15)
[2016-07-13] MEDS: LORazepam 2 MG/ML VIAL (J2060) IV PRN (11:59)
--- NOTE | 2016-07-13 15:04 | IPNPDOC ---
Subjective Date Seen The patient was seen on 07/13/16. Subjective Chief Complaint/HPI The patient is a 51-year-old male admitted with a reason for visit of Alcohol Withdrawal Syndrome. Constitutional: Denies: Chills Eyes: Denies: Pain Pulmonary: Denies: Dyspnea, Cough Cardiovascular: Denies: Chest Pain Gastrointestinal: Denies: Nausea, Vomiting Genitourinary: Denies: Dysuria Objective Physical Examination General Exam: Positive: Alert, No Acute Distress ENT Exam: Positive: Atraumatic, Mucous membr. moist/pink, Pharynx Normal Neck Exam: Positive: Supple, Negative: JVD, thyromegaly Chest Exam: Positive: Clear to auscultation, Normal air movement Heart Exam: Positive: Rate Normal, Regular Rhythm, Normal S1, Normal S2, Negative: Murmurs, Rubs Telemetry: Positive: No significant arrhythmia Abdomen Exam: Positive: Normal bowel sounds, Soft, Negative: Tenderness, Hepatospenomegaly Extremity Exam: Positive: Normal pulses, Negative: Clubbing, Cyanosis, Edema Skin Exam: Positive: Nl turgor and temperature, Negative: Rash, Breakdown Neuro Exam: Positive: Other (mild tremors noted. ) Psych Exam: Positive: Anxiety, Oriented x 3 Assessment /Plan Problems (1) Alcohol withdrawal syndrome Status: Acute Response to Treatment: Improving Problem Specific Plan: Monitor Clinically Problem Text: 07/13 weaned to 5 TID for planned 07/14 dc off benzos 07/12/16 admitted since 07/07/16; therefore, wean oxazepam 15 TID to 10 TID-per PCP, would NOT dc on benzo taper given abuse risk. Patient prefers to add wd medication; therefore, + naltrexone (no active hepatitis nor narcotic use) (2) Alcohol abuse Status: Chronic Problem Text: Will need addictions counseling post hospitalization. Patient does not currently have a plan to remain sober after discharge. Patient is feeling better today, and would like to try something different for his mood. (3) Anxiety reaction Status: Acute Response to Treatment: Stable Problem Text: 07/13 increased to 50 TID 07/12 + hydroxy 25 TID prn (only took 2 dosages, but helped) 07/11 changed citalo 20 to venla 37.5 (07/12 to 75) (4) Hypertension Status: Chronic Response to Treatment: Stable Problem Text: Stable on HD amlo 5 Plan/VTE VTE Prophylaxis Ordered?: Yes (Lovenox) Disposition 07/14 home c outpatient Addiction Services and AA f/u VS, I&O, 24H, Fishbone Vital Signs/I&O Vital Signs Date Time Temp Pulse Resp B/P (MAP) Pulse Ox O2 Delivery O2 Flow Rate FiO2 07/13/16 12:00 91 137/86 07/13/16 06:00 98.0 16 97 07/12/16 22:00 Room Air I&O- Last 24 Hours up to 6 AM 07/13/16 05:59 Intake Total 1440 ml Output Total 500 ml Balance 940 ml Laboratory Data 24H LABS Laboratory Tests 2 07/13/16 05:45: White Blood Count 6.3, Red Blood Count 4.57, Hemoglobin 15.7, Hematocrit 48.7, Mean Corpuscular Volume 106.5H, Mean Corpuscular Hemoglobin 34.4H, Mean Corpuscular Hemoglobin Concent 32.3, Red Cell Distribution Width 12.9, Platelet Count 305, Neutrophils (%) (Auto) 59.6, Lymphocytes (%) (Auto) 24.6, Monocytes ( %) (Auto) 9.6H, Eosinophils (%) (Auto) 1.9, Basophils (%) (Auto) 0.8, Neutrophils # (Auto) 3.8, Lymphocytes # (Auto) 1.6, Monocytes # (Auto) 0.6, Eosinophils # (Auto) 0.1, Basophils # (Auto) 0.0, Large Unclassified Cells % 3.6 , Large Unclassified Cells # 0.2, Anion Gap 7L, Glomerular Filtration Rate > 60.0, Blood Urea Nitrogen 10, Creatinine 0.61L, Sodium Level 140, Potassium Level 4.2, Chloride Level 106, Carbon Dioxide Level 27, Calcium Level 8.6, Aspartate Amino Transf (AST/SGOT) 42H, Alanine Aminotransferase (ALT/SGPT) 47, Alkaline Phosphatase 86, Total Bilirubin 0.2, Total Protein 6.6, Albumin 3.2, Magnesium Level 2.4, Albumin/Globulin Ratio 0.94L CBC/BMP Laboratory Tests 07/13/16 05:45 Red Blood Count 4.57, Mean Corpuscular Volume 106.5 H, Mean Corpuscular Hemoglobin 34.4 H, Mean Corpuscular Hemoglobin Concent 32.3, Red Cell Distribution Width 12.9, Neutrophils (%) (Auto) 59.6, Lymphocytes (%) (Auto) 24.6, Monocytes (%) (Auto) 9.6 H, Eosinophils (%) (Auto) 1.9, Basophils (%) ( Auto) 0.8, Neutrophils # (Auto) 3.8, Lymphocytes # (Auto) 1.6, Monocytes # (Auto ) 0.6, Eosinophils # (Auto) 0.1, Basophils # (Auto) 0.0, Calcium Level 8.6, Aspartate Amino Transf (AST/SGOT) 42 H, Alanine Aminotransferase (ALT/SGPT) 47, Alkaline Phosphatase 86, Total Bilirubin 0.2, Total Protein 6.6, Albumin 3.2 Jese Gordon M.D. July 13, 2016 15:03
[2016-07-13] MEDS: VENLAFAXINE **XR** 75MG CAPSULE PO SCH (20:04)
[2016-07-13] MEDS: ENOXAPARIN 40 MG/0.4 ML SYRINGE (J1650) SC SCH (20:04)
[2016-07-13] MEDS: LORazepam 0.5 MG TAB PO SCH (21:06)
[2016-07-13] MEDS: BISACODYL 5 MG TAB PO PRN (21:06)
[2016-07-13] MEDS ORDERED: OXAZEPAM 10 MG CAP PO SCH (22:00)
[2016-07-14] MEDS: hydrOXYzine 25 MG TAB PO PRN ×2 (02:51→11:55)
[2016-07-14] MEDS: ACETAMINOPHEN TAB 650MG DOSE (2X325MG) PO PRN (02:51)
[2016-07-14 04:20] VITALS: BP 137/82
[2016-07-14] MEDS: LORazepam 0.5 MG TAB PO SCH (05:37)
[2016-07-14 05:50] LABS: BASO # 0.1 K/mm3 (0.0-0.2); BASO % 1.1 % (0.0-1.0); EOS # 0.1 K/mm3 (0.0-0.50); EOS % 1.8 % (0.0-3.0); LARGE UNSTAINED CELL # 0.2 K/mm3 (0.0-0.4); LARGE UNSTAINED CELL % 3.6 % (0.0-4.0); LYMPH # 1.7 K/mm3 (1.5-4.5); LYMPH % 21.9 % (24.0-44.0); MEAN CORPUSCULAR HEMOGLOBIN 34.1 pg (27.0-33.0); MEAN CORPUSCULAR VOLUME 103.2 fl (80.0-96.0); MONO # 0.8 K/mm3 (0.0-0.8); MONO % 12.7 % (0.0-5.0); NEUTROPHILS # 3.9 K/mm3 (1.8-7.7); PLATELET COUNT, AUTOMATED 320 k/mm3 (150-450); RED CELL DISTRIBUTION WIDTH 13.3 % (11.5-14.5); WHITE BLOOD COUNT 6.6 K/mm3 (4.0-10.0)
[2016-07-14 06:00] VITALS: BP 137/87
[2016-07-14 06:01] LABS: ALBUMIN/GLOBULIN RATIO 0.86 (1.00-1.93); ALKALINE PHOSPHATASE 78 U/L (45-117); ALT/SGPT 47 U/L (12-78); ANION GAP 5 MEQ/L (8-16); AST/SGOT 38 U/L (15-37); BILIRUBIN,TOTAL 0.1 MG/DL (0.2-1.0); BLOOD UREA NITROGEN 12 MG/DL (7-18); CALCIUM LEVEL 8.4 MG/DL (8.5-10.1); CARBON DIOXIDE LEVEL 30 MEQ/L (21-32); CHLORIDE LEVEL 106 MEQ/L (98-107); CREATININE FOR GFR 0.66 MG/DL (0.70-1.30); GLOMERULAR FILTRATION RATE > 60.0 (>60); GLUCOSE, FASTING 92 MG/DL (70-105); MAGNESIUM LEVEL 2.4 MG/DL (1.8-2.4); SODIUM LEVEL 141 MEQ/L (136-145); TOTAL PROTEIN 6.5 GM/DL (6.4-8.2)
[2016-07-14 09:00] VITALS: BP 137/87
[2016-07-14] MEDS: NALTREXONE 50 MG TAB PO SCH (09:33)
[2016-07-14] MEDS: THIAMINE 100 MG TAB PO SCH (09:33)
[2016-07-14] MEDS: FOLIC ACID 1 MG TAB PO SCH (09:33)
[2016-07-14] MEDS: OMEPRAZOLE 20 MG CAP PO SCH (09:33)
[2016-07-14] MEDS: GABAPENTIN 300 MG CAP PO SCH (09:33)
[2016-07-14] MEDS: BISACODYL 5 MG TAB PO PRN (09:33)
[2016-07-14] MEDS: CYANOCOBALAMIN 500 MCG TAB PO SCH (09:33)
[2016-07-14 09:34] VITALS: BP 137/87
[2016-07-14] MEDS: amLODIPine 5 MG TAB PO SCH (09:34)
[2016-07-14] MEDS: raNITIdine SYRUP 150 MG/10 ML UDC PO SCH (09:34)
[2016-07-14] MEDS: NICOTINE 14 MG/24 HR TRANSDERMAL TD SCH (09:34)
[2016-07-14] MEDS ORDERED: NALT50TA4 PO (10:52)
[2016-07-14] MEDS ORDERED: OMEP20CA3 PO (10:52)
[2016-07-14] MEDS ORDERED: HYDR25T PO (10:52)
[2016-07-14] MEDS ORDERED: VENL75CA PO (10:52)
[2016-07-14] MEDS ORDERED: VITA500T53 PO (10:52)
--- NOTE | 2016-07-14 12:24 | DSES ---
DATE OF ADMISSION: 07/07/2016 DATE OF DISCHARGE: 07/14/2016 ADDENDUM TO DISCHARGE SUMMARY: During his hospitalization, the patient has remained medically stable. He has been weaned over the weekend off from his Serax down to Ativan, which is ultimately being discontinued. He will be discharged home on hydroxyzine, venlafaxine and naltrexone. He seems to be tolerating this well. The plan is for him to be discharged home later today presenting to the walk in clinic tomorrow morning because they open at 8:00 for walk in clinics at [facility] on [facility], which the patient prefers to attend to [facility] because this is within walking distance of his home. His discharge medications are changed from the previously dictated discharge summary. He will go home on amlodipine 5 mg daily, folic acid 1 mg daily, Nicoderm patch 14 mg, thiamine 100 mg daily, acetaminophen 650 mg daily, naltrexone 50 mg daily, omeprazole 20 mg daily, venlafaxine 75 mg daily. DISCHARGE DIAGNOSES AND PLAN: Are unchanged. Attending attestation: I saw and evaluated the patient on the day of discharge, and I agree with the discharge plan of care as discussed and documented by Jannet Venegas. Mitchell Galloway MD [facility]ITALMirna
== END 2016-07-14 12:03 | disposition home or self-care (01) | DRG 775 ==
LOC: M ED 09:29 → M ED INP 17:39 → M ICU 19:51 → M MSPAV 07-08 20:25
PROVIDERS: ADMIT Internal Medicine; ATTEND Family Medicine
DX: F10.239 Alcohol dependence with withdrawal, unspecified (principal); I10 Essential (primary) hypertension; M54.9 Dorsalgia, unspecified; F41.9 Anxiety disorder, unspecified; M79.1 Myalgia; R79.89 Other specified abnormal findings of blood chemistry; F17.210 Nicotine dependence, cigarettes, uncomplicated; Z79.899 Other long term (current) drug therapy; Z88.0 Allergy status to penicillin

== ENCOUNTER 2016-10-07 03:00 | Emergency (ER) | payer OTHER ==
[~2016-10-07] VITALS: Ht 177.8 cm; Wt 60.9 kg
[~2016-10-07 03:00] MED LIST: ACET1TAB17 PO; ALBU17IN INH; AMLO5TAB2 PO; CELE20TA PO; FOLI1TAB4 PO; GABA-282 PO; HYDR-3363 PO; NALT50TA4 PO; NICO14PA TD; OMEP20CA3 PO; OXAZ10CA3 PO; THIA100TA PO; VENL75CA2 PO; VITA500T53 PO
[2016-10-07] MEDS ORDERED: ASPIRIN 325 MG TAB PO ONE (05:00)
[2016-10-07] MEDS ORDERED: PHENobarbital 30 MG TAB PO ONE (05:45)
[2016-10-07 06:02] LABS: INR 0.85
[2016-10-07 06:12] LABS: BASO % 0.7 % (0.0-1.0); EOS # 0.1 K/mm3 (0.0-0.50); EOS % 1.4 % (0.0-3.0); LARGE UNSTAINED CELL # 0.1 K/mm3 (0.0-0.4); LARGE UNSTAINED CELL % 3.4 % (0.0-4.0); LYMPH # 0.7 K/mm3 (1.5-4.5); LYMPH % 16.8 % (24.0-44.0); MEAN CORPUSCULAR HEMOGLOBIN 34.9 pg (27.0-33.0); MEAN CORPUSCULAR HGB CONC 34.8 g/dl (32.0-36.5); MEAN CORPUSCULAR VOLUME 100.3 fl (80.0-96.0); MONO # 0.4 K/mm3 (0.0-0.8); MONO % 10.5 % (0.0-5.0); NEUTROPHILS # 2.8 K/mm3 (1.8-7.7); NEUTROPHILS % 67.2 % (36.0-66.0); PLATELET COUNT, AUTOMATED 194 k/mm3 (150-450); RED CELL DISTRIBUTION WIDTH 13.2 % (11.5-14.5); WHITE BLOOD COUNT 4.2 K/mm3 (4.0-10.0)
[2016-10-07 06:13] LABS: ANION GAP 10 MEQ/L (8-16); BLOOD UREA NITROGEN 4 MG/DL (7-18); CALCIUM LEVEL 8.3 MG/DL (8.5-10.1); CARBON DIOXIDE LEVEL 25 MEQ/L (21-32); CHLORIDE LEVEL 103 MEQ/L (98-107); CREATININE FOR GFR 0.52 MG/DL (0.70-1.30); GLOMERULAR FILTRATION RATE > 60.0 (>60); GLUCOSE, FASTING 87 MG/DL (70-105); POTASSIUM SERUM 4.2 MEQ/L (3.5-5.1); SODIUM LEVEL 138 MEQ/L (136-145)
--- NOTE | 2016-10-07 08:23 | REP ---
PA and lateral chest: Comparison is 04/27/2016. The lung sandoval are clear. The cardiac size is normal The fabian, mediastinum, and bony thorax are unremarkable. Impression: Negative PA and lateral chest. There is no interval change. Signed by Jose Valencia MD 10/07/2016 08:15 A
[2016-10-07 09:04] LABS: ALBUMIN 3.7 GM/DL (3.2-5.2); ALBUMIN/GLOBULIN RATIO 1.09 (1.00-1.93); ALKALINE PHOSPHATASE 123 U/L (45-117); ALT/SGPT 120 U/L (12-78); AST/SGOT 147 U/L (15-37); BILIRUBIN,DIRECT 0.1 MG/DL (0.0-0.2); BILIRUBIN,TOTAL 0.3 MG/DL (0.2-1.0); TOTAL PROTEIN 7.1 GM/DL (6.4-8.2)
[2016-10-07] MEDS ORDERED: NITROGLYCERIN 0.4 MG SUBL TABLET SL PRN (09:15)
[2016-10-07 10:21] VITALS: BP 184/108
--- NOTE | 2016-10-07 16:07 | ECGEPIP ---
Stationary ECG Study [facility] - ED Test Date: 2016-10-07 Pat Name: GUY VILLAREAL Department: Room: - Gender: M Extrusion Former: DixonB: 1965 Requested By: GERMAN IRIZARRY Order Number: [id number] Reading MD: Donavan Best Measurements Intervals [place] Rate: 89 P: 53 DE: 128 QRS: 61 QRSD: 90 T: 58 QT: 359 QTc: 438 Interpretive Statements SINUS RHYTHM VOLTAGE CRITERIA FOR LVH SIMILAR TO 07/11/16 Electronically Signed On 10-07-2016 16:07:03 EDT by Donavan Best
--- NOTE | 2016-10-07 16:09 | ECGEPIP ---
Stationary ECG Study [facility] - ED Test Date: 2016-10-07 Pat Name: GUY VILLAREAL Department: Room: - Gender: M Comber Operator: ct : 1965 Requested By: GERMAN IRIZARRY Order Number: [id number] Reading MD: Donavan Best Measurements Intervals [place] Rate: 98 P: 64 MN: 146 QRS: 51 QRSD: 84 T: 56 QT: 330 QTc: 421 Interpretive Statements SINUS RHYTHM VOLTAGE CRITERIA FOR LVH Electronically Signed On 10-07-2016 16:09:12 EDT by Donavan Best
== END 2016-10-07 10:24 | disposition home or self-care (01) ==
LOC: M ED 03:00
DX: K29.20 Alcoholic gastritis without bleeding (principal); K70.10 Alcoholic hepatitis without ascites; J44.9 Chronic obstructive pulmonary disease, unspecified; K21.9 Gastro-esophageal reflux disease without esophagitis; F10.20 Alcohol dependence, uncomplicated; F33.9 Major depressive disorder, recurrent, unspecified; Z86.73 Personal history of transient ischemic attack (TIA), and cerebral infarction without residual deficits; Z79.899 Other long term (current) drug therapy; Z88.0 Allergy status to penicillin; F17.201 Nicotine dependence, unspecified, in remission

== ENCOUNTER 2016-11-22 15:40 | Emergency (ER) | payer OTHER ==
[~2016-11-22] VITALS: Ht 177.8 cm; Wt 61.4 kg
[2016-11-22 16:16] LABS: BASO # 0.1 10^3/uL (0.0-0.2); BASO % 0.8 % (0.0-1.0); EOS # 0.1 10^3/uL (0.0-0.50); EOS % 1.5 % (0.0-3.0); IMMATURE GRANULOCYTE % 0.3 % (0-0); LYMPH # 1.7 10^3/uL (1.5-4.5); LYMPH % 23.8 % (24.0-44.0); MEAN CORPUSCULAR HEMOGLOBIN 33.8 pg (27.0-33.0); MEAN CORPUSCULAR HGB CONC 34.3 g/dl (32.0-36.5); MEAN CORPUSCULAR VOLUME 98.6 fl (80.0-96.0); MONO # 0.9 10^3/uL (0.0-0.8); MONO % 12.5 % (0.0-5.0); NEUTROPHILS # 4.4 10^3/uL (1.8-7.7); NEUTROPHILS % 61.1 % (36.0-66.0); PLATELET COUNT, AUTOMATED 235 10^3/uL (150-450); RED CELL DISTRIBUTION WIDTH 12.9 % (11.5-14.5); WHITE BLOOD COUNT 7.1 10^3/uL (4.0-10.0)
[2016-11-22 16:18] LABS: ADD MORPHOLOGY? NO
--- NOTE | 2016-11-22 16:34 | REP ---
PA and lateral chest: Comparison is 10/07/2016. The lung sandoval are clear. Cardiac size is normal. The fabian, mediastinum, bony thorax are unremarkable. There is a cervical spine stabilization plate. Impression: No acute cardiopulmonary findings. No change from the prior study. Signed by Jose Valencia MD 11/22/2016 04:26 P
[2016-11-22 16:49] LABS: ALBUMIN 3.5 GM/DL (3.2-5.2); ALBUMIN/GLOBULIN RATIO 1.06 (1.00-1.93); ALKALINE PHOSPHATASE 86 U/L (45-117); ALT/SGPT 45 U/L (12-78); ANION GAP 6 MEQ/L (8-16); AST/SGOT 37 U/L (15-37); BILIRUBIN,DIRECT < 0.1 MG/DL (0.0-0.2); BILIRUBIN,TOTAL 0.2 MG/DL (0.2-1.0); BLOOD UREA NITROGEN 5 MG/DL (7-18); CALCIUM LEVEL 8.8 MG/DL (8.5-10.1); CARBON DIOXIDE LEVEL 26 MEQ/L (21-32); CHLORIDE LEVEL 105 MEQ/L (98-107); CREATININE FOR GFR 0.66 MG/DL (0.70-1.30); FREE T4 0.77 NG/DL (0.76-1.46); GLOMERULAR FILTRATION RATE > 60.0 (>60); GLUCOSE, FASTING 87 MG/DL (70-105); POTASSIUM SERUM 4.1 MEQ/L (3.5-5.1); SODIUM LEVEL 137 MEQ/L (136-145); TOTAL PROTEIN 6.8 GM/DL (6.4-8.2)
[2016-11-22] MEDS ORDERED: ISOVUE-370 76% 100ML VIAL (Q9967) As Ordered ONE (17:18)
--- NOTE | 2016-11-22 18:40 | REPUSA ---
CLINICAL HISTORY: CP, exclude PE. TECHNIQUE: Multiple incremental axial, coronal and oblique images are obtained from the thoracic inle t to the upper abdomen. Intravenous contrast material was administered as per pulmonary embolism prot ocol. COMMENTS: Severe upper lobe predominant paraseptal emphysema is noted There is excellent opacification of pulmonary arterial system without evidence for pulmonary embolism . Aorta is of normal caliber without evidence for dissection or aneurysm. There is no evidence of pleural or parenchymal mass. There are no pleural effusions. There is no evid ence of hilar or mediastinal lymphadenopathy. The heart and great vessels are within normal limits. The bony structures are free of lytic or blastic lesions. Multilevel degenerative changes are seen in volving the visualized thoracolumbar spine. Scattered calcifications are seen involving the aorta and major branches compatible with atherosclero sis. IMPRESSION: Severe emphysema. No evidence for pulmonary embolism. Thank you for your kind referral of this patient.
--- NOTE | 2016-11-22 18:50 | REPUSA ---
CLINICAL HISTORY: Abdominal pain, exclude aortic dissection. TECHNIQUE: Multiple incremental axial, coronal, sagittal images are obtained from the thoracic inlet to the ischial tuberosities. Intravenous contrast material was administered for the examination as pe r angiographic protocol. COMMENTS: Severe upper lobe predominant paraseptal emphysema is noted. There is excellent opacification of pulmonary arterial system without evidence for pulmonary embolism . Aorta is of normal caliber without evidence for dissection or aneurysm. Scattered calcifications are seen involving the aorta and major branches compatible with atherosclerosis. There is no evidence of pleural or parenchymal mass. There are no pleural effusions. There is no evid ence of hilar or mediastinal lymphadenopathy. Specifically no evidence for paratracheal and supraclav icular adenopathy. There is no evidence for a chest or abdominal wall nodule or mass. The liver is of uniform decreased attenuation without mass or defect compatible with fatty infiltrati on. The gallbladder is within normal limits. There is no intrahepatic or extrahepatic biliary ductal dilatation. The spleen is normal. The pancreas is of normal contour and attenuation characteristics. Two 7 mm nodules are noted in the left adrenal gland most compatible with adenomas. There is no evide nce of adrenal mass. Both kidneys demonstrate prompt and equal nephrograms. The kidneys are normal in size, shape and configuration. Specifically, there is no evidence of renal mass. There is no hydrour eter or hydronephrosis. There is no bowel wall thickening. No evidence for small or large bowel obstruction. There is no evid ence of abdominal ascites or lymphadenopathy. There is no evidence of intrinsic or extrinsic bladder mass. There is no pelvic ascites or lymphadeno compa. The bony structures are free of lytic or blastic lesions. IMPRESSION: Severe upper lobe predominant paraseptal emphysema. Aorta is of normal caliber without evidence for dissection or aneurysm. Fatty liver. Two 7 mm nodules are noted in the left adrenal gland most compatible with adenomas. Thank you for your kind referral of this patient.
--- NOTE | 2016-11-22 21:51 | ECGEPIP ---
Stationary ECG Study [facility] - ED Test Date: 2016-11-22 Pat Name: GUY VILLAREAL Department: Room: - Gender: M Transport Specialist: tobias : 1965 Requested By: Tyshawn Shelley Order Number: [id number] Reading MD: Donavan Best Measurements Intervals [place] Rate: 100 P: 60 HI: 136 QRS: 44 QRSD: 86 T: 48 QT: 332 QTc: 428 Interpretive Statements SINUS TACHYCARDIA VOLTAGE CRITERIA FOR LVH SIMILAR TO 10/07/16 Electronically Signed On 11-22-2016 21:51:21 EDT by Donavan Best
--- NOTE | 2016-11-22 21:54 | ECGEPIP ---
Stationary ECG Study [facility] - ED Test Date: 2016-11-22 Pat Name: GUY VILLAREAL Department: Room: - Gender: M Medical Receptionist Medical Assistant: DixonB: 1965 Requested By: Tyshawn Shelley Order Number: [id number] Reading MD: Donavan Best Measurements Intervals [place] Rate: 97 P: 56 W[place]: 140 QRS: 36 QRSD: 85 T: 55 QT: 338 QTc: 430 Interpretive Statements SINUS RHYTHM VOLTAGE CRITERIA FOR LVH SIMILAR TO PRIOR ON SAME DATE Electronically Signed On 11-22-2016 21:54:17 EDT by Donavan Best
[2016-11-22 22:07] VITALS: BP 138/79
--- NOTE | 2016-11-23 10:20 | ED PDOC ---
Post-Departure Follow-Up radiology report faxed to Terra Felix MD Nov 23, 2016 10:19
== END 2016-11-22 22:08 | disposition home or self-care (01) ==
LOC: M ED 15:40
DX: R07.9 Chest pain, unspecified (principal); I10 Essential (primary) hypertension; E78.5 Hyperlipidemia, unspecified; G43.909 Migraine, unspecified, not intractable, without status migrainosus; F10.10 Alcohol abuse, uncomplicated; Z79.82 Long term (current) use of aspirin; Z88.0 Allergy status to penicillin; F17.210 Nicotine dependence, cigarettes, uncomplicated
CPT/HCPCS: 36415; 71020; 71275; 74177; 80048; 80076; 82550; 82553; 83880; 84439; 84443; 85025; 85379; 93000; 93041; 94760; 99285; Q9967

== ENCOUNTER 2017-09-27 16:01 | Emergency (ER) | payer OTHER ==
[2017-09-27 16:36] LABS: BASO % 0.3 % (0.0-1.0); EOS # 0.1 10^3/uL (0.0-0.50); EOS % 0.8 % (0.0-3.0); HEMATOCRIT 50.3 % (42.0-52.0); HEMOGLOBIN 17.5 g/dl (13.5-17.5); IMMATURE GRANULOCYTE % 0.3 % (0-3.0); LYMPH # 1.2 10^3/uL (1.5-4.5); LYMPH % 12.7 % (24.0-44.0); MEAN CORPUSCULAR HEMOGLOBIN 34.2 pg (27.0-33.0); MEAN CORPUSCULAR HGB CONC 34.8 g/dl (32.0-36.5); MEAN CORPUSCULAR VOLUME 98.4 fl (80.0-96.0); MONO # 0.9 10^3/uL (0.0-0.8); MONO % 10.1 % (0.0-5.0); NEUTROPHILS # 6.9 10^3/uL (1.8-7.7); NEUTROPHILS % 75.8 % (36.0-66.0); PLATELET COUNT, AUTOMATED 191 10^3/uL (150-450); RED BLOOD COUNT 5.11 10^6/uL (4.30-6.10); RED CELL DISTRIBUTION WIDTH 12.1 % (11.5-14.5); WHITE BLOOD COUNT 9.1 10^3/uL (4.0-10.0)
[2017-09-27 16:50] LABS: INR 0.93; PROTHROMBIN TIME 12.5 SECONDS (12.1-14.4)
[2017-09-27] MEDS: NS 1,000 ML IV (17:00)
[2017-09-27] MEDS: GI COCKTAIL 50ML BTL(HYOSCYAMINE/MAALOX/LIDOCAINE VISCOUS)(1:3:1) PO (17:00)
[2017-09-27 17:02] LABS: ALBUMIN 3.6 GM/DL (3.2-5.2); ALBUMIN/GLOBULIN RATIO 0.84 (1.00-1.93); ALKALINE PHOSPHATASE 159 U/L (45-117); ALT/SGPT 61 U/L (12-78); ANION GAP 10 MEQ/L (8-16); AST/SGOT 79 U/L (7-37); BILIRUBIN,DIRECT 0.2 MG/DL (0.0-0.2); BILIRUBIN,TOTAL 0.6 MG/DL (0.2-1.0); BLOOD UREA NITROGEN 4 MG/DL (7-18); CALCIUM LEVEL 9.2 MG/DL (8.5-10.1); CARBON DIOXIDE LEVEL 26 MEQ/L (21-32); CHLORIDE LEVEL 102 MEQ/L (98-107); CK-MB VALUE MASS < 1.0 NG/ML (<3.6); CPK CREATINE PHOSPHOKINASE 50 U/L (39-308); GLOMERULAR FILTRATION RATE > 60.0 (>56); GLUCOSE, FASTING 104 MG/DL (70-100); LIPASE 131 U/L (73-393); POTASSIUM SERUM 4.3 MEQ/L (3.5-5.1); SODIUM LEVEL 138 MEQ/L (136-145); TOTAL PROTEIN 7.9 GM/DL (6.4-8.2); TROPONIN I < 0.02 NG/ML (< 0.10)
[2017-09-27] MEDS: ACETAMINOPHEN 325 MG TAB PO (17:12)
[2017-09-27] MEDS: LABETALOL 100 MG TAB PO (17:12)
[2017-09-27] MEDS: LABETALOL HCL 100 MG/20 ML VIAL IV (17:13)
[2017-09-27] MEDS: hydroCHLOROthiazide 12.5 MG CAPSULE PO (17:55)
[2017-09-27 22:17] LABS: CK-MB VALUE MASS < 1.0 NG/ML (<3.6); CPK CREATINE PHOSPHOKINASE 44 U/L (39-308); MB/CK RELATIVE INDEX 2.27 (< OR =4); TROPONIN I < 0.02 NG/ML (< 0.10)
== END 2017-09-27 22:54 | disposition home or self-care (01) ==
LOC: M ED 16:01
DX: R07.89 Other chest pain (principal); I11.9 Hypertensive heart disease without heart failure; J45.909 Unspecified asthma, uncomplicated; Z86.79 Personal history of other diseases of the circulatory system; F17.200 Nicotine dependence, unspecified, uncomplicated; Z88.0 Allergy status to penicillin
CPT/HCPCS: 71045

== ENCOUNTER 2018-09-17 01:16 | Inpatient (IN) | payer OTHER ==
[~2018-09-17] VITALS: Ht 175.3 cm; Wt 51.1 kg
[~2018-09-17 01:16] MED LIST changes: -ACET1TAB17 PO; +ACET1TAB55 PO; -AMLO5TAB2 PO; +AMLO5TAB6 PO; +FOLI1TAB11 PO; -FOLI1TAB4 PO; -GABA-282 PO; +GABA-843 PO; +LISI-538 PO; +LISI20TA PO; -OMEP20CA3 PO; +OMEP20CA4 PO; +VITA500T17 PO; -VITA500T53 PO
[2018-09-17] MEDS ORDERED: NS 1,000 ML IV ONE (01:45)
[2018-09-17] MEDS ORDERED: OXAZEPAM 15 MG CAP PO ONE (01:45)
[2018-09-17 02:00] LABS: BASO % 0.4 % (0.0-1.0); HEMATOCRIT 48.2 % (42.0-52.0); LYMPH # 0.9 10^3/uL (1.5-4.5); LYMPH % 7.7 % (24.0-44.0); MEAN CORPUSCULAR HEMOGLOBIN 33.5 pg (27.0-33.0); MEAN CORPUSCULAR HGB CONC 37.3 g/dl (32.0-36.5); MEAN CORPUSCULAR VOLUME 89.6 fl (80.0-96.0); MONO # 1.3 10^3/uL (0.0-0.8); MONO % 11.2 % (0.0-5.0); NEUTROPHILS # 9.1 10^3/uL (1.8-7.7); NEUTROPHILS % 80.3 % (36.0-66.0); PLATELET COUNT, AUTOMATED 224 10^3/uL (150-450); RED BLOOD COUNT 5.38 10^6/uL (4.30-6.10); WHITE BLOOD COUNT 11.3 10^3/uL (4.0-10.0)
[2018-09-17] MEDS ORDERED: ISOVUE-370 76% 100ML VIAL (Q9967) As Ordered ONE (02:07)
[2018-09-17 02:12] LABS: ALBUMIN 2.4 GM/DL (3.2-5.2); ALT/SGPT 18 U/L (12-78); BILIRUBIN,DIRECT 0.3 MG/DL (0.0-0.2); BILIRUBIN,TOTAL 0.9 MG/DL (0.2-1.0); BLOOD UREA NITROGEN 20 MG/DL (7-18); CALCIUM LEVEL 8.3 MG/DL (8.5-10.1); CARBON DIOXIDE LEVEL 15 MEQ/L (21-32); CHLORIDE LEVEL 93 MEQ/L (98-107); CPK CREATINE PHOSPHOKINASE 67 U/L (39-308); CREATININE FOR GFR 0.87 MG/DL (0.70-1.30); ETHYL ALCOHOL (ETHANOL) < 0.003 % (0.000-0.010); GLOMERULAR FILTRATION RATE > 60.0 (>56); GLUCOSE, FASTING 132 MG/DL (70-100); LIPASE 178 U/L (73-393); MB/CK RELATIVE INDEX 2.99 (< OR =4); POTASSIUM SERUM 4.7 MEQ/L (3.5-5.1); SODIUM LEVEL 124 MEQ/L (136-145); TOTAL PROTEIN 6.4 GM/DL (6.4-8.2); TROPONIN I 0.12 NG/ML (< 0.10)
--- NOTE | 2018-09-17 03:42 | REPVR ---
EXAM: CT Head Without Contrast EXAM DATE/TIME: 09/17/18 (1:42am) CLINICAL HISTORY: 53 year old male. Altered mental status / memory loss. TECHNIQUE: Imaging protocol: Computed tomography images of the head without contrast. Radiation optimization: All CT scans at this facility use at least one of these dose optimization techniques: automated exposure control; mA and/or kV adjustment per patient size (includes targeted exams where dose is matched to clinical indication); or iterative reconstruction. COMPARISON: CT HEAD of 10/04/12 FINDINGS: Brain: Mild atrophic changes. No acute hemorrhage. No mass effect. Ventricles: Normal. No ventriculomegaly. Bones/joints: Unremarkable. No acute fracture. S/P right-sided craniotomy (also noted in 2012). Sinuses: Visualized sinuses are unremarkable. No air-fluid levels. Mastoid air cells: Visualized mastoid air cells are well aerated. No mastoid effusion. Soft tissues: Unremarkable. IMPRESSION: No acute intracranial pathology is appreciated. Electronically signed by: Tamera Gordon On 09/17/2018 03:42:06 AM
--- NOTE | 2018-09-17 03:49 | REPVR ---
EXAM: CT Angiography Chest With Contrast EXAM DATE/TIME: 09/17/18 (1:42am) CLINICAL HISTORY: 53 year old male with chest pain. AMS. TECHNIQUE: Imaging protocol: Axial computed tomographic angiography images of the chest with intravenous contrast using CT angiography protocol. Coronal and sagittal reformatted images were created and reviewed. 3D rendering: MIP reconstructed images were created and reviewed. Radiation optimization: All CT scans at this facility use at least one of these dose optimization techniques: automated exposure control; mA and/or kV adjustment per patient size (includes targeted exams where dose is matched to clinical indication); or iterative reconstruction. Contrast material: Iso Contrast volume: 75 ml Contrast route: Antecubital vein COMPARISON: CTA CHEST of 11/22/16 FINDINGS: Pulmonary arteries: Normal. No pulmonary emboli. Aorta: Unremarkable. No aortic aneurysm. No aortic dissection. Lungs: Emphysematous lung changes again seen. Numerous bilateral bullae, most notably at the lung apices. Hazy infiltrates at the left lung base, and anterolaterally in the left midlung zone. No dense consolidation. Pleural space: Unremarkable. No pneumothorax. No pleural effusions. Heart: Unremarkable. No cardiomegaly. No pericardial effusion. Lymph nodes: Unremarkable. No enlarged lymph nodes. Bones/joints: Unremarkable. No acute fracture. Soft tissues: Unremarkable. Upper abdomen: Stable left adrenal nodularity. Other findings: Distended, air-filled esophagus. IMPRESSION: Hazy infiltrates at the left lung base, and anterolaterally in the left mid lung zone. A left-sided multilobar infectious pneumonia may be present, eg. No pleural effusions. Emphysematous lung changes. No filling defects suspicious for pulmonary emboli are seen. There is no CT evidence of aortic dissection nor leakage. No aortic aneurysm is appreciated. Electronically signed by: Tamera Gordon On 09/17/2018 03:49:07 AM
[2018-09-17 03:57] LABS: AMPHETAMINES LEVEL URINE NEGATIVE (NEGATIVE); BARBITURATES URINE NEGATIVE (NEGATIVE); BENZODIAZEPINES URINE NEGATIVE (NEGATIVE); CANNABINOIDS URINE NEGATIVE (NEGATIVE); COCAINE METABOLITE URINE NEGATIVE (NEGATIVE); METHADONE URINE NEGATIVE (NEGATIVE); OPIATES URINE NEGATIVE (NEGATIVE); PHENCYCLIDINE URINE NEGATIVE (NEGATIVE)
[2018-09-17 04:47] LABS: CK-MB VALUE MASS 1.8 NG/ML (<3.6); MB/CK RELATIVE INDEX 3.6 (< OR =4); TROPONIN I 0.12 NG/ML (< 0.10)
[2018-09-17] MEDS ORDERED: LevoFLOXacin IV 750 MG in APPROPRIATE DILUENT 1 EA IV ONE (06:15)
--- NOTE | 2018-09-17 06:31 | ECGEPIP ---
[facility] - ED Test Date: 2018-09-17 Pat Name: GUY VILLAREAL Department: Room: - Gender: Male Radiation Technician: GODWIN : 1965 Requested By: MARKOS Bradley Order Number: [id number] Reading MD: Donavan Best Measurements Intervals [place] Rate: 111 P: 78 RI: 140 QRS: 56 QRSD: 88 T: 67 QT: 328 QTc: 448 Interpretive Statements SINUS TACHYCARDIA NONSPECIFIC ST & T-WAVE ABNORMALITY RATE CHANGE COMPARED TO 09/27/17 Electronically Signed on 09-17-2018 6:31:06 EDT by Donavan Best
--- NOTE | 2018-09-17 06:55 | REP ---
Clinical: Chest pain. Technique: Portable semiupright. Comparison: 09/27/2017. Findings: Mediastinum and cardiac silhouette normal. Lung sandoval demonstrate COPD/emphysematous changes with scattered biapical scarring. No consolidation, effusion, or pneumothorax. Skeletal structures intact. Impression: Chronic COPD/emphysematous changes. Electronically Signed by Tam Roque MD 09/17/2018 06:47 A
[2018-09-17 10:12] VITALS: BP 145/90
[2018-09-17 11:14] LABS: MEAN CORPUSCULAR HEMOGLOBIN 33.9 pg (27.0-33.0); MEAN CORPUSCULAR HGB CONC 37.2 g/dl (32.0-36.5); MEAN CORPUSCULAR VOLUME 91.1 fl (80.0-96.0); PLATELET COUNT, AUTOMATED 169 10^3/uL (150-450); RED BLOOD COUNT 4.72 10^6/uL (4.30-6.10); WHITE BLOOD COUNT 8.3 10^3/uL (4.0-10.0)
[2018-09-17 11:33] LABS: BLOOD UREA NITROGEN 15 MG/DL (7-18); CARBON DIOXIDE LEVEL 20 MEQ/L (21-32); CHLORIDE LEVEL 99 MEQ/L (98-107); CREATININE FOR GFR 0.65 MG/DL (0.70-1.30); GLOMERULAR FILTRATION RATE > 60.0 (>56); GLUCOSE, FASTING 108 MG/DL (70-100); MAGNESIUM LEVEL 2.4 MG/DL (1.8-2.4); POTASSIUM SERUM 3.8 MEQ/L (3.5-5.1); SODIUM LEVEL 128 MEQ/L (136-145)
[2018-09-17 12:19] VITALS: BP 130/93
[2018-09-17] MEDS: ENOXAPARIN 30 MG/0.3 ML SYR (J1650) SC SCH (12:19)
[2018-09-17 12:30] LABS: CK-MB VALUE MASS 1.7 NG/ML (<3.6); MB/CK RELATIVE INDEX 3.62 (< OR =4); TROPONIN I 0.13 NG/ML (< 0.10)
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
--- NOTE | 2018-09-17 15:55 | ECHO ---
DATE OF STUDY: 09/17/2018 REFERRING PHYSICIAN: Dr. Deric Ibrahim INDICATION: Abnormal ECG. HEIGHT: 69 inches WEIGHT: 52.4 kg 2-D MEASUREMENTS: Aortic annulus: 2.0 cm Left atrium: 2.3 cm Aortic root: 2.7 cm Inferior vena cava: 0.9 cm (with more than 50% respiratory variation) DOPPLER MEASUREMENTS: Aortic valve velocity: 93.0 cm/s LVOT velocity: 77.6 cm/s Mitral E velocity: 72.8 cm/s Mitral A velocity: 82.5 cm/s Mitral deceleration time: 183 ms Very mild tricuspid regurgitation. Estimated right ventricle systolic pressure 30 mmHg assuming an atrial pressure of 5 mmHg. Pulmonary artery systolic pressure: 28 mmHg MITRAL ANNULAR TISSUE DOPPLER: E prime septal: 5.0 cm/s E prime lateral: 6.42 cm/s DESCRIPTION: Rhythm was sinus. This was moderately technically difficult echocardiogram. No pericardial effusion. This is a 2-D, M-mode, color flow Doppler and pulse waved Doppler examination and included mitral annular tissue Doppler. CONCLUSIONS: 1. Normal left ventricle internal dimensions and wall thickness. Normal regional LV wall motion and wall thickening. Normal systolic function. Left ventricular ejection fraction (LVEF) 65% by visual estimate. Grade 1 diastolic dysfunction (impaired relaxation filling pattern). 2. Otherwise, normal-appearing echocardiogram-Doppler findings. 3. Moderately technically difficult echocardiogram-Doppler.
[2018-09-17 16:11] VITALS: BP 152/98
[2018-09-17] MEDS: ACETAMINOPHEN TAB 650MG DOSE (2X325MG) PO PRN (16:34)
[2018-09-17 20:00] VITALS: BP 129/84
[2018-09-17] MEDS ORDERED: LORazepam 2 MG/ML VIAL (J2060) IV PRN (20:30)
[2018-09-17] MEDS ORDERED: MULTIVITAMIN -ADULT INJECTION 10 ML, THIAMINE INJection 100 MG, FOLIC ACID 1 MG in NS 1... IV ONE (21:00)
[2018-09-17 21:09] LABS: CK-MB VALUE MASS 1.9 NG/ML (<3.6); MB/CK RELATIVE INDEX 3.39 (< OR =4); TROPONIN I 0.18 NG/ML (< 0.10)
[2018-09-18] VITALS (14 sets, daily range): BP systolic 110–146; BP diastolic 67–97
[2018-09-18] MEDS ORDERED: ONDANSETRON 4MG/2ML VIAL (J2405) IV PRN (01:00)
[2018-09-18 04:42] LABS: HEMATOCRIT 43.7 % (42.0-52.0); HEMOGLOBIN 15.8 g/dl (13.5-17.5); MEAN CORPUSCULAR HEMOGLOBIN 32.8 pg (27.0-33.0); MEAN CORPUSCULAR HGB CONC 36.2 g/dl (32.0-36.5); MEAN CORPUSCULAR VOLUME 90.7 fl (80.0-96.0); PLATELET COUNT, AUTOMATED 166 10^3/uL (150-450); RED BLOOD COUNT 4.82 10^6/uL (4.30-6.10); WHITE BLOOD COUNT 8.3 10^3/uL (4.0-10.0)
[2018-09-18 05:07] LABS: ALT/SGPT 11 U/L (12-78); BILIRUBIN,TOTAL 0.5 MG/DL (0.2-1.0); BLOOD UREA NITROGEN 22 MG/DL (7-18); CALCIUM LEVEL 7.9 MG/DL (8.5-10.1); CARBON DIOXIDE LEVEL 18 MEQ/L (21-32); CHLORIDE LEVEL 103 MEQ/L (98-107); CREATININE FOR GFR 0.61 MG/DL (0.70-1.30); GLOMERULAR FILTRATION RATE > 60.0 (>56); GLUCOSE, FASTING 80 MG/DL (70-100); MAGNESIUM LEVEL 2.6 MG/DL (1.8-2.4); POTASSIUM SERUM 4.2 MEQ/L (3.5-5.1); SODIUM LEVEL 132 MEQ/L (136-145); TOTAL PROTEIN 5.4 GM/DL (6.4-8.2)
[2018-09-18 05:11] LABS: CK-MB VALUE MASS 1.4 NG/ML (<3.6); MB/CK RELATIVE INDEX 3.68 (< OR =4); TROPONIN I 0.25 NG/ML (< 0.10)
[2018-09-18] MEDS ORDERED: NS 1,000 ML IV ONE (05:30)
[2018-09-18] MEDS ORDERED: LevoFLOXacin IV 750 MG in APPROPRIATE DILUENT 1 EA IV SCH (06:00)
[2018-09-18] MEDS: LevoFLOXacin IV 750 MG in APPROPRIATE DILUENT 1 EA IV SCH (06:35)
[2018-09-18 07:34] LABS: BLOOD UREA NITROGEN 22 MG/DL (7-18); CALCIUM LEVEL 7.3 MG/DL (8.5-10.1); CARBON DIOXIDE LEVEL 18 MEQ/L (21-32); CHLORIDE LEVEL 107 MEQ/L (98-107); GLOMERULAR FILTRATION RATE > 60.0 (>56); GLUCOSE, FASTING 80 MG/DL (70-100); POTASSIUM SERUM 4.2 MEQ/L (3.5-5.1); SODIUM LEVEL 135 MEQ/L (136-145)
[2018-09-18] MEDS: ENOXAPARIN 30 MG/0.3 ML SYR (J1650) SC SCH (08:13)
[2018-09-18 11:08] LABS: CK-MB VALUE MASS 1.3 NG/ML (<3.6); MB/CK RELATIVE INDEX 4.06 (< OR =4); TROPONIN I 0.22 NG/ML (< 0.10)
--- NOTE | 2018-09-18 13:17 | IPNPDOC ---
Subjective Date Seen The patient was seen on 09/18/18. Subjective Chief Complaint/HPI Patient seen and examined at bedside. States that he is feeling much better today. Reports that his respiratory status is also improved. Denies any other acute complaints at this time. Objective Physical Examination General Exam: Positive: Alert, Cooperative, No Acute Distress ENT Exam: Positive: Atraumatic, Mucous membr. moist/pink Neck Exam: Negative: JVD Chest Exam: Positive: Diminished Heart Exam: Positive: Rate Normal, Normal S1, Normal S2 Telemetry: Positive: Sinus Abdomen Exam: Positive: Soft; Negative: Tenderness Extremity Exam: Negative: Tenderness, Swelling Psych Exam: Positive: Oriented x 3 Assessment /Plan Plan/VTE VTE Prophylaxis Ordered?: Yes Plan Multilobular Pneumonia CTA Chest noted Sputum, Blood Cultures unrevealing thus far Cont IV Levaquin (Penicillin Allergy) Patient not in need of supplemental oxygen Hemodynamically stable Patient respiratory status and mentation significantly improved this AM PT ordered for functional optimization We will cont to monitor Hypovolemic Hyponatremia, resolved The patient's Serum Sodium has improved appropriately since admission We will cont to monitor Non-anion gap metabolic acidosis Likely 2/2 Dehydration, underlying infection IVF Hydration Lactic Acidosis 2/2 Above, resolved Elevated Troponin Levels Likely 2/2 Underlying Pneumonia Patient complaining of reproducible chest wall pain 2/2 coughing EKG with no acute ST changes Patient denies history of CAD Trops downward trending 2D ECHO pending Patient counseled to follow up as outpatient for stress testing, further work up Monitor on Telemetry Alcohol Abuse States that his last drink was 3 days ago On CIWA protocol, scores have been low according to the bedside nurse Follow protocol for Ativan DVT prophylaxis Lovenox subcutaneous VS, I&O, 24H, Rex Vital Signs/I&O Vital Signs Date Time Temp Pulse Resp B/P (MAP) Pulse Ox O2 Delivery O2 Flow Rate FiO2 09/18/18 08:00 87 120/67 09/18/18 08:00 97.7 20 98 09/17/18 06:16 Room Air I&O- Last 24 Hours up to 6 AM 09/18/18 06:00 Intake Total 2000 ml Output Total 1060 ml Balance 940 ml Laboratory Data 24H LABS Laboratory Tests 2 09/17/18 20:19: Total Creatine Kinase 56, Creatine Kinase MB 1.9, Creatine Kinase MB Relative Index 3.39, Troponin I 0.18#H 09/18/18 04:10: Total Creatine Kinase 38L, Creatine Kinase MB 1.4, Creatine Kinase MB Relative Index 3.68, Troponin I 0.25#H, Nucleated Red Blood Cells % (auto) 0.5H, Anion Gap 11, Glomerular Filtration Rate > 60.0, Blood Urea Nitrogen 22H, Creatinine 0.61L, Sodium Level 132L, Potassium Level 4.2, Chloride Level 103, Carbon Dioxide Level 18L, Calcium Level 7.9L, Aspartate Amino Transf (AST/SGOT) 17, Alanine Aminotransferase (ALT/SGPT) 11L, Alkaline Phosphatase 96, Total Bilirubin 0.5, Total Protein 5.4L, Albumin 2.0L, Magnesium Level 2.6H, Albumin/Globulin Ratio 0.59L 09/18/18 06:56: Anion Gap 10, Glomerular Filtration Rate > 60.0, Blood Urea Nitrogen 22H, Creatinine 0.60L, Sodium Level 135L, Potassium Level 4.2, Chloride Level 107, Carbon Dioxide Level 18L, Calcium Level 7.3L, Lactic Acid Level 1.2 09/18/18 10:31: Total Creatine Kinase 32L, Creatine Kinase MB 1.3, Creatine Kinase MB Relative Index 4.06H, Troponin I 0.22H CBC/BMP Laboratory Tests 09/17/18 16:51 09/18/18 04:10 Red Blood Count 4.82, Mean Corpuscular Volume 90.7, Mean Corpuscular Hemoglobin 32.8, Mean Corpuscular Hemoglobin Concent 36.2, Red Cell Distribution Width 13.4, Calcium Level 7.9 L, Aspartate Amino Transf (AST/SGOT) 17, Alanine Aminotransferase (ALT/SGPT) 11 L, Alkaline Phosphatase 96, Total Bilirubin 0.5, Total Protein 5.4 L, Albumin 2.0 L 09/18/18 06:56 Calcium Level 7.3 L Microbiology Microbiology 09/17/18 Blood Culture - Preliminary, Resulted No growth after 24 hours . All specim... 09/17/18 Blood Culture - Preliminary, Resulted No growth after 24 hours . All specim... UZIEL GUILLEN MD Sep 18, 2018 13:17
[2018-09-19] VITALS: BP 132/83
[2018-09-19 04:00] VITALS: BP 130/80
[2018-09-19] MEDS: LevoFLOXacin IV 750 MG in APPROPRIATE DILUENT 1 EA IV SCH (05:30)
[2018-09-19 06:00] VITALS: BP 120/77
[2018-09-19 06:34] LABS: HEMATOCRIT 38.8 % (42.0-52.0); MEAN CORPUSCULAR HEMOGLOBIN 33.5 pg (27.0-33.0); MEAN CORPUSCULAR HGB CONC 34.8 g/dl (32.0-36.5); MEAN CORPUSCULAR VOLUME 96.3 fl (80.0-96.0); PLATELET COUNT, AUTOMATED 157 10^3/uL (150-450); RED BLOOD COUNT 4.03 10^6/uL (4.30-6.10); WHITE BLOOD COUNT 6.3 10^3/uL (4.0-10.0)
[2018-09-19 06:46] LABS: HEMOGLOBIN 13.5 g/dl (13.5-17.5)
[2018-09-19 07:21] LABS: ALBUMIN 1.9 GM/DL (3.2-5.2); ALT/SGPT 11 U/L (12-78); BILIRUBIN,TOTAL 0.3 MG/DL (0.2-1.0); BLOOD UREA NITROGEN 16 MG/DL (7-18); CALCIUM LEVEL 8.1 MG/DL (8.5-10.1); CARBON DIOXIDE LEVEL 20 MEQ/L (21-32); CHLORIDE LEVEL 107 MEQ/L (98-107); CK-MB VALUE MASS < 1.0 NG/ML (<3.6); CPK CREATINE PHOSPHOKINASE 32 U/L (39-308); CREATININE FOR GFR 0.52 MG/DL (0.70-1.30); GLOMERULAR FILTRATION RATE > 60.0 (>56); GLUCOSE, FASTING 68 MG/DL (70-100); MAGNESIUM LEVEL 2.5 MG/DL (1.8-2.4); MB/CK RELATIVE INDEX 3.12 (< OR =4); POTASSIUM SERUM 4.5 MEQ/L (3.5-5.1); SODIUM LEVEL 135 MEQ/L (136-145); TROPONIN I 0.18 NG/ML (< 0.10)
[2018-09-19] MEDS: ENOXAPARIN 30 MG/0.3 ML SYR (J1650) SC SCH (09:17)
--- NOTE | 2018-09-19 12:47 | IPNPDOC ---
Subjective Date Seen The patient was seen on 09/19/18. Subjective Chief Complaint/HPI Patient seen and examined at the bedside. He continues to remain weak and has had difficulty getting to the bathroom. I did speak with the patient's brother Surinder at length this morning and updated him about Mr. Leyva's condition via telephone. Objective Physical Examination General Exam: Positive: Alert, Cooperative, No Acute Distress ENT Exam: Positive: Atraumatic, Mucous membr. moist/pink Neck Exam: Negative: JVD Chest Exam: Positive: Diminished Heart Exam: Positive: Rate Normal, Normal S1, Normal S2 Telemetry: Positive: Sinus Abdomen Exam: Positive: Soft; Negative: Tenderness Extremity Exam: Negative: Tenderness, Swelling Psych Exam: Positive: Oriented x 3 Assessment /Plan Plan/VTE VTE Prophylaxis Ordered?: Yes Plan Multilobular Pneumonia CTA Chest noted Sputum, Blood Cultures unrevealing thus far Cont IV Levaquin (Penicillin Allergy) Patient not in need of supplemental oxygen Hemodynamically stable Patient respiratory status continues to improve PT ordered for functional optimization We will cont to monitor Hypovolemic Hyponatremia, resolved The patient's Serum Sodium has improved appropriately since admission We will cont to monitor Non-anion gap metabolic acidosis, improved Likely 2/2 Dehydration, underlying infection Status post IVF Hydration Lactic Acidosis 2/2 Above, resolved Elevated Troponin Levels Likely 2/2 Underlying Pneumonia Patient complaining of reproducible chest wall pain 2/2 coughing EKG with no acute ST changes Patient denies history of CAD Trops downward trending 2D ECHO revealed preserved left ventricular ejection fraction, grade 1 diastolic dysfunction Patient counseled to follow up as outpatient for stress testing, further work up Monitor on Telemetry Alcohol Abuse Patient has had negative CIWA scores over last 24 hrs DVT prophylaxis Lovenox subcutaneous Disposition-pending clinical improvement, functional optimization with physical therapy. VS, I&O, 24H, Rex Vital Signs/I&O Vital Signs Date Time Temp Pulse Resp B/P (MAP) Pulse Ox O2 Delivery O2 Flow Rate FiO2 09/19/18 06:00 96.4 76 15 120/77 (91) 100 09/17/18 06:16 Room Air I&O- Last 24 Hours up to 6 AM 09/19/18 06:00 Intake Total 1538 ml Output Total 400 ml Balance 1138 ml Laboratory Data 24H LABS Laboratory Tests 2 09/19/18 05:50: Nucleated Red Blood Cells % (auto) 0.0, Anion Gap 8, Glomerular Filtration Rate > 60.0, Blood Urea Nitrogen 16, Creatinine 0.52L, Sodium Level 135L, Potassium Level 4.5, Chloride Level 107, Carbon Dioxide Level 20L, Calcium Level 8.1L, Aspartate Amino Transf (AST/SGOT) 22, Alanine Aminotransferase (ALT/SGPT) 11L, Total Creatine Kinase 32L, Alkaline Phosphatase 75, Total Bilirubin 0.3, Total Protein 5.0L, Albumin 1.9L, Magnesium Level 2.5H, Creatine Kinase MB < 1.0, Creatine Kinase MB Relative Index 3.12, Troponin I 0.18H, Albumin/Globulin Ratio 0.61L CBC/BMP Laboratory Tests 09/19/18 05:50 Red Blood Count 4.03 L, Mean Corpuscular Volume 96.3 H, Mean Corpuscular Hemoglobin 33.5 H, Mean Corpuscular Hemoglobin Concent 34.8, Red Cell Distribution Width 13.7, Calcium Level 8.1 L, Aspartate Amino Transf (AST/SGOT) 22, Alanine Aminotransferase (ALT/SGPT) 11 L, Total Creatine Kinase 32 L, Alkaline Phosphatase 75, Total Bilirubin 0.3, Total Protein 5.0 L, Albumin 1.9 L Microbiology Microbiology 09/17/18 Blood Culture - Preliminary, Resulted No Growth after 48 hours. All Specime... 09/17/18 Blood Culture - Preliminary, Resulted No Growth after 48 hours. All Specime... UZIEL GUILLEN MD Sep 19, 2018 12:47
[2018-09-19 14:00] VITALS: BP 113/76
[2018-09-19 22:00] VITALS: BP 103/57
[2018-09-20] MEDS: LevoFLOXacin IV 750 MG in APPROPRIATE DILUENT 1 EA IV SCH (05:33)
[2018-09-20 06:00] VITALS: BP 111/65
[2018-09-20 06:25] LABS: HEMATOCRIT 34.7 % (42.0-52.0); MEAN CORPUSCULAR HEMOGLOBIN 33.1 pg (27.0-33.0); MEAN CORPUSCULAR HGB CONC 34.6 g/dl (32.0-36.5); MEAN CORPUSCULAR VOLUME 95.9 fl (80.0-96.0); PLATELET COUNT, AUTOMATED 152 10^3/uL (150-450); RED BLOOD COUNT 3.62 10^6/uL (4.30-6.10)
[2018-09-20 06:56] LABS: ALT/SGPT 19 U/L (12-78); BILIRUBIN,TOTAL 0.4 MG/DL (0.2-1.0); BLOOD UREA NITROGEN 7 MG/DL (7-18); CALCIUM LEVEL 8.4 MG/DL (8.5-10.1); CARBON DIOXIDE LEVEL 27 MEQ/L (21-32); CHLORIDE LEVEL 107 MEQ/L (98-107); CREATININE FOR GFR 0.36 MG/DL (0.70-1.30); GLOMERULAR FILTRATION RATE > 60.0 (>56); GLUCOSE, FASTING 77 MG/DL (70-100); MAGNESIUM LEVEL 2.5 MG/DL (1.8-2.4); POTASSIUM SERUM 3.9 MEQ/L (3.5-5.1); SODIUM LEVEL 137 MEQ/L (136-145); TOTAL PROTEIN 5.2 GM/DL (6.4-8.2)
[2018-09-20] MEDS ORDERED: MECLIZINE 25 MG TABLET PO PRN (07:45)
[2018-09-20] MEDS: ENOXAPARIN 30 MG/0.3 ML SYR (J1650) SC SCH (08:39)
--- NOTE | 2018-09-20 10:49 | IPNPDOC ---
Subjective Date Seen The patient was seen on 09/20/18. Subjective Chief Complaint/HPI Patient seen and examined at the bedside. Reports that he is starting to feel better, less dizzy. States that his cough has also improved. No acute overnight events noted. Objective Physical Examination General Exam: Positive: Alert, Cooperative, No Acute Distress ENT Exam: Positive: Atraumatic, Mucous membr. moist/pink Neck Exam: Negative: JVD Chest Exam: Positive: Diminished Heart Exam: Positive: Rate Normal, Normal S1, Normal S2 Telemetry: Positive: Sinus Abdomen Exam: Positive: Soft; Negative: Tenderness Extremity Exam: Negative: Tenderness, Swelling Psych Exam: Positive: Oriented x 3 Assessment /Plan Plan/VTE VTE Prophylaxis Ordered?: Yes Plan Multilobular Pneumonia CTA Chest noted Sputum, Blood Cultures unrevealing thus far Cont PO Levaquin (Penicillin Allergy) Patient not in need of supplemental oxygen Hemodynamically stable Patient respiratory status continues to improve PT ordered for functional optimization We will cont to monitor Hypovolemic Hyponatremia, resolved The patient's Serum Sodium has improved appropriately since admission We will cont to monitor Non-anion gap metabolic acidosis, improved Likely 2/2 Dehydration, underlying infection Status post IVF Hydration Lactic Acidosis 2/2 Above, resolved Elevated Troponin Levels Likely 2/2 Underlying Pneumonia Patient complaining of reproducible chest wall pain 2/2 coughing EKG with no acute ST changes Patient denies history of CAD Trops downward trending 2D ECHO revealed preserved left ventricular ejection fraction, grade 1 diastolic dysfunction Patient counseled to follow up as outpatient for stress testing, further work up Monitor on Telemetry Alcohol Abuse Patient has had negative CIWA scores over last 24 hrs DVT prophylaxis Lovenox subcutaneous Disposition-pending clinical improvement, functional optimization with physical therapy. VS, I&O, 24H, [place] Vital Signs/I&O Vital Signs Date Time Temp Pulse Resp B/P (MAP) Pulse Ox O2 Delivery O2 Flow Rate FiO2 09/20/18 06:00 96.7 71 18 111/65 (80) 97 09/17/18 06:16 Room Air I&O- Last 24 Hours up to 6 AM 09/20/18 06:00 Intake Total 930 ml Output Total 1000 ml Balance -70 ml Laboratory Data 24H LABS Laboratory Tests 2 09/20/18 05:48: Nucleated Red Blood Cells % (auto) 0.3H, Anion Gap 3L, Glomerular Filtration Rate > 60.0, Blood Urea Nitrogen 7#, Creatinine 0.36L, Sodium Level 137, Potassium Level 3.9, Chloride Level 107, Carbon Dioxide Level 27, Calcium Level 8.4L, Aspartate Amino Transf (AST/SGOT) 37, Alanine Aminotransferase (ALT/SGPT) 19, Alkaline Phosphatase 68, Total Bilirubin 0.4, Total Protein 5.2L, Albumin 2.0L, Magnesium Level 2.5H, Albumin/Globulin Ratio 0.63L CBC/BMP Laboratory Tests 09/20/18 05:48 Red Blood Count 3.62 L, Mean Corpuscular Volume 95.9, Mean Corpuscular Hemoglobin 33.1 H, Mean Corpuscular Hemoglobin Concent 34.6, Red Cell Distribution Width 13.5, Calcium Level 8.4 L, Aspartate Amino Transf (AST/SGOT) 37, Alanine Aminotransferase (ALT/SGPT) 19, Alkaline Phosphatase 68, Total Bilirubin 0.4, Total Protein 5.2 L, Albumin 2.0 L Microbiology Microbiology 09/17/18 Blood Culture - Preliminary, Resulted No Growth after 72 hours. All specime... 09/17/18 Blood Culture - Preliminary, Resulted No Growth after 72 hours. All specime... UZIEL GUILLEN MD Sep 20, 2018 10:49
[2018-09-20 12:55] VITALS: BP 110/77
[2018-09-20 14:00] VITALS: BP 109/63
[2018-09-20] MEDS: ACETAMINOPHEN TAB 650MG DOSE (2X325MG) PO PRN (21:13)
[2018-09-20 22:00] VITALS: BP 127/80
[2018-09-21] MEDS: LevoFLOXacin 750 MG TABLET PO SCH (05:46)
[2018-09-21 06:00] VITALS: BP 138/85
[2018-09-21 06:28] LABS: HEMATOCRIT 33.8 % (42.0-52.0); HEMOGLOBIN 11.4 g/dl (13.5-17.5); MEAN CORPUSCULAR HEMOGLOBIN 33.1 pg (27.0-33.0); MEAN CORPUSCULAR HGB CONC 33.7 g/dl (32.0-36.5); MEAN CORPUSCULAR VOLUME 98.3 fl (80.0-96.0); PLATELET COUNT, AUTOMATED 171 10^3/uL (150-450); RED BLOOD COUNT 3.44 10^6/uL (4.30-6.10); WHITE BLOOD COUNT 5.5 10^3/uL (4.0-10.0)
[2018-09-21 06:57] LABS: ALBUMIN 2.1 GM/DL (3.2-5.2); ALT/SGPT 22 U/L (12-78); BILIRUBIN,TOTAL 0.4 MG/DL (0.2-1.0); BLOOD UREA NITROGEN 5 MG/DL (7-18); CALCIUM LEVEL 8.3 MG/DL (8.5-10.1); CARBON DIOXIDE LEVEL 31 MEQ/L (21-32); CHLORIDE LEVEL 107 MEQ/L (98-107); CREATININE FOR GFR 0.49 MG/DL (0.70-1.30); GLOMERULAR FILTRATION RATE > 60.0 (>56); GLUCOSE, FASTING 80 MG/DL (70-100); MAGNESIUM LEVEL 2.6 MG/DL (1.8-2.4); POTASSIUM SERUM 3.9 MEQ/L (3.5-5.1); SODIUM LEVEL 140 MEQ/L (136-145); TOTAL PROTEIN 5.4 GM/DL (6.4-8.2)
[2018-09-21] MEDS: ENOXAPARIN 30 MG/0.3 ML SYR (J1650) SC SCH (08:32)
[2018-09-21 14:00] VITALS: BP 140/70
[2018-09-21] MEDS ORDERED: NITROGLYCERIN 0.4 MG SUBL TABLET SL ONE (16:00)
[2018-09-21 16:15] VITALS: BP 133/85
[2018-09-21 16:30] VITALS: BP 102/71
[2018-09-21] MEDS: IPRATROPIUM 0.5MG/ALBUTEROL 2.5MG INH SOL UD 3ML (DUONEB)(J7620) NEB SCH (20:00)
--- NOTE | 2018-09-21 20:35 | IPNPDOC ---
Text Note Date of Service The patient was seen on 09/21/18 at 1630. NOTE S: Patient states minimal cough but has had continual chest pressure, subst ernal,, gnawing "all day". He was given 1 SL NTG with relief. EKG obtained with no changes. Troponin stable. He states no fever, no N , no vomiting and was admitted with multilobar pneumonia. He has been of all EtOH for 5-6 days per and no signs of DTs although states patient with some auditory/visual hallucinations (eating breadsticks at restaurant, but motioning as if eating thin air). Patient has increased sleeping and lethargy but easily awakens. sitting at bedside. O: Vitals as below General: sleeping but awakes to verbal stimuli, falls back to sleep if not engaged in conversation. no tremors, answers questions appropriately. He denies verbal/auditory hallucinations (last dose lorezapam 09/18/18) HEENT: KLEVER/EOMI HRRR no murmur LCTA no W/R/R (not taking deep breaths) Neuro: no tremors, no motor or sensory deficits; Current Medications Medications (Trade) Dose Ordered Sig/Carlos Eduardo Route PRN Reason Start Time Stop Time Status Last Admin Dose Admin Acetaminophen (Tylenol Tab) 650 mg Q4H PRN PO PAIN OR FEVER 09/17/18 08:15 09/20/18 21:13 Enoxaparin Sodium (Lovenox) 30 mg DAILY SC 09/17/18 09:00 09/21/18 08:32 Home Med (Med Rec Complete!) ASDIRECTED XX 09/17/18 06:30 09/17/18 06:30 DC Levofloxacin (Levaquin) 750 mg DAILY@06 PO 09/21/18 06:00 09/21/18 05:46 Levofloxacin 750 mg/IV Miscellaneous Supplies 150 ml @ 100 mls/hr Q24H IV 09/18/18 06:00 09/20/18 07:33 DC 09/20/18 05:33 Levofloxacin 750 mg/IV Miscellaneous Supplies 150 ml @ 100 mls/hr Q24H IV 09/18/18 06:00 Cancel Lorazepam (Ativan) 1 mg ASDIRECTED PRN IV SEE PROTOCOL 09/17/18 20:30 09/18/18 00:44 Meclizine HCl (Antivert) 25 mg BIDP PRN PO DIZZINESS 09/20/18 07:45 09/20/18 12:54 Ondansetron HCl (ZOFRAN INJection) 4 mg Q6HP PRN IV NAUSEA OR VOMITING 09/18/18 01:00 A/P: 1) Multilobular Pneumonia - probable bacterial Confirmed on CTA chest; Sputum/blood cultures negative On levaquin po Patient not in need of supplemental oxygen IS/PEP and albuterol started PT ordered for functional optimization 2) chest pressure - mildly elevated troponin suggestive of NSTEMI type II (demand ischemia) or angina Cardiology consulted. Releif with NTG. May need outpatient stress test. no EKG changes Patient denies history of CAD and Trops downward trending 2D ECHO revealed preserved left ventricular ejection fraction, grade 1 diastolic dysfunction 3) Hypovolemic Hyponatremia, resolved 4) Non-anion gap metabolic acidosis, improved; due to dehydration/infection 5) Lactic Acidosis -RESOLVED (due to infection without sepsis 6) Alcohol Abuse with negative CIWA; last ativan 09/18/18; continue with folate, MVI and thiamine DVT prophylaxis: enoxaprin VS,Fishbone, I+O VS, Fishbone, I+O Laboratory Tests 09/21/18 05:54 Red Blood Count 3.44 L, Mean Corpuscular Volume 98.3 H, Mean Corpuscular Hemoglobin 33.1 H, Mean Corpuscular Hemoglobin Concent 33.7, Red Cell D istribution Width 13.7, Calcium Level 8.3 L, Aspartate Amino Transf (AST/SGOT) 30, Alanine Aminotransferase (ALT/SGPT) 22, Alkaline Phosphatase 67, Total Bilirubin 0.4, Total Protein 5.4 L, Albumin 2.1 L Vital Signs Date Time Temp Pulse Resp B/P (MAP) Pulse Ox O2 Delivery O2 Flow Rate FiO2 09/21/18 16:30 102/71 (81) 09/21/18 14:00 96.6 80 19 99 09/17/18 06:16 Room Air I&O- Last 24 Hours up to 6 AM 09/21/18 06:00 Intake Total 1570 ml Output Total 325 ml Balance 1245 ml DANNY SLOAN DO Sep 21, 2018 20:35
[2018-09-21 22:00] VITALS: BP 132/81
[2018-09-22] MEDS: LevoFLOXacin 750 MG TABLET PO SCH (05:49)
[2018-09-22 06:00] VITALS: BP 157/94
[2018-09-22 06:26] LABS: HEMATOCRIT 33.6 % (42.0-52.0); HEMOGLOBIN 11.5 g/dl (13.5-17.5); MEAN CORPUSCULAR HEMOGLOBIN 33.6 pg (27.0-33.0); MEAN CORPUSCULAR HGB CONC 34.2 g/dl (32.0-36.5); MEAN CORPUSCULAR VOLUME 98.2 fl (80.0-96.0); RED BLOOD COUNT 3.42 10^6/uL (4.30-6.10); WHITE BLOOD COUNT 5.7 10^3/uL (4.0-10.0)
[2018-09-22 06:31] LABS: ALBUMIN 2.1 GM/DL (3.2-5.2); ALT/SGPT 20 U/L (12-78); BILIRUBIN,TOTAL 0.3 MG/DL (0.2-1.0); BLOOD UREA NITROGEN 5 MG/DL (7-18); CALCIUM LEVEL 8.4 MG/DL (8.5-10.1); CARBON DIOXIDE LEVEL 27 MEQ/L (21-32); CHLORIDE LEVEL 107 MEQ/L (98-107); CREATININE FOR GFR 0.33 MG/DL (0.70-1.30); GLOMERULAR FILTRATION RATE > 60.0 (>56); GLUCOSE, FASTING 81 MG/DL (70-100); MAGNESIUM LEVEL 2.4 MG/DL (1.8-2.4); POTASSIUM SERUM 4.9 MEQ/L (3.5-5.1); SODIUM LEVEL 138 MEQ/L (136-145)
[2018-09-22 06:46] LABS: PLATELET COUNT, AUTOMATED 95 10^3/uL (150-450)
[2018-09-22] MEDS: IPRATROPIUM 0.5MG/ALBUTEROL 2.5MG INH SOL UD 3ML (DUONEB)(J7620) NEB SCH ×3 (07:34→15:28)
[2018-09-22] MEDS: ENOXAPARIN 30 MG/0.3 ML SYR (J1650) SC SCH (08:39)
--- NOTE | 2018-09-22 08:46 | REP ---
Clinical: Chest pain. Pneumonia. Technique: PA and lateral. Comparison: 09/17/2018. Findings: Mediastinum and cardiac silhouette are stable. Lung sandoval demonstrate diffuse chronic-appearing interstitial changes and biapical scarring. The subtle left lower lobe infiltrates are identified on CT dated 09/17/2018 are not definitively identified by current x-ray. No effusion. No pneumothorax. Skeletal structures demonstrate age-related changes. Impression: 1. Chronic stable-appearing changes. 2. Very subtle ground-glass infiltrates identified on recent chest CT are not definitively identified by current x-ray. Electronically Signed by Tam Roque MD 09/22/2018 08:38 A
[2018-09-22] MEDS ORDERED: FOLIC ACID 1 MG TAB PO SCH (09:00)
[2018-09-22] MEDS ORDERED: THIAMINE 100 MG TAB PO SCH (09:00)
[2018-09-22] MEDS ORDERED: MULTIVITAMINS/MINERALS THERAP 1 TAB PO SCH (09:00)
--- NOTE | 2018-09-22 09:26 | ECGEPIP ---
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
[2018-09-22] MEDS ORDERED: FOLI1TAB11 PO (11:47)
[2018-09-22] MEDS ORDERED: MECL-86 PO (11:48)
[2018-09-22] MEDS ORDERED: LEVA750T7 PO (11:48)
[2018-09-22] MEDS ORDERED: THIA100TA PO (11:48)
--- NOTE | 2018-09-23 20:54 | DS.PDOC ---
Discharge Summary General Date of Admission Sep 17, 2018 at 08:15 Date of Discharge 09/22/18 Attending Physician: DANNY SLOAN DO Specialist/Consultants Involve: Dane Siu MD Discharge Summary PROCEDURES PERFORMED DURING STAY: none ADMITTING DIAGNOSES: Multilobular Pneumonia Respiratory Alkalosis Hypovolemic Hyponatremia Non-anion gap metabolic acidosis Dehydration Lactic Acidosis Elevated Troponin Levels DISCHARGE DIAGNOSES: 1) Multilobular Pneumonia - probable bacterial 2) mildly elevated troponin suggestive of NSTEMI type II (demand ischemia) 3) Hypovolemic Hyponatremia, resolved 4) Non-anion gap metabolic acidosis, improved; due to dehydration/infection 5) Lactic Acidosis -RESOLVED (due to infection without sepsis) 6) Alcohol Abuse with negative CIWA; COMPLICATIONS/CHIEF COMPLAINT: Multifocal Pneumonia. HISTORY OF PRESENT ILLNESS: 53-year-old male who does not follow with a primary care physician for the past 1.5 years presents to the ER with a chief complaint of increased shortness of breath associated with a cough for the last several days. He also notes subjective fevers. The patient's history was limited due to his clinical presentation. His girlfriend, who is at the bedside states that he patient drinks 2 sixpacks of beer daily and has done so for the last 30 years. However, over the last 3 days he has not been drinking any alcohol due to his cough and shortness of breath. In the ER, the patient was noted to be tachycardic and short of breath. A CT scan of the chest revealed a left sided multilobular infectious pneumonia. The patient will be admitted to the hospitalist service for further evaluation and management. See H&P for details HOSPITAL COURSE: Patient admitted. CIWA remained negative. CTA chest confirmed multilobar pneumonia and patient placed on levaquin, IS/PEP, Nebs. He did not require supplemental oxygen prior to discharge. He was given IVF fluids and continued to improve. He had episodes of chest pressure (relieved with SLNTG) and troponin were mildly elevated suggestive of demand ischemia. Cardiology consulted and recommended outpatient stress test. ECHO performed as below. patient is being discharged in stable and improved condition DISCHARGE MEDICATIONS: Please see below. ALLERGIES: Please see below. PHYSICAL EXAMINATION ON DISCHARGE: VITAL SIGNS: Please see below. HEENT: KLEVER/EOMI HRRR no murmur LCTA no W/R/R Neuro: no tremors, no motor or sensory deficits; LABORATORY DATA: Please see below. IMAGING: ECHO CONCLUSIONS: 1. Normal left ventricle internal dimensions and wall thickness. Normal regional LV wall motion and wall thickening. Normal systolic function. Left ventricular ejection fraction (LVEF) 65% by visual estimate. Grade 1 diastolic dysfunction (impaired relaxation filling pattern). 2. Otherwise, normal-appearing echocardiogram-Doppler findings. 3. Moderately technically difficult echocardiogram-Doppler. PROGNOSIS: good if patient stops all etoh use; poor if EtOH use continues ACTIVITY: as tolerated DIET: regular DISCHARGE PLAN: discharge home DISPOSITION: . DISCHARGE INSTRUCTIONS: 1. follow up with PCP in 5-7 days to recheck lungs 2. Stop all alcohol use 3. stop all tobacco use 4. use incentive spirometer 3 times a day to improve lung expansion 5. levaquin 750mg x 2 more days (to complete total 7 days treatment) 6. use rollator walker for gait stability 7. outpatient PT request given DISCHARGE CONDITION:stable TIME SPENT ON DISCHARGE: 35 minutes. Vital Signs/I&Os Vital Signs Date Time Temp Pulse Resp B/P (MAP) Pulse Ox O2 Delivery O2 Flow Rate FiO2 09/22/18 06:00 97.2 71 18 157/94 (115) 97 09/17/18 06:16 Room Air I&O- Last 24 Hours up to 6 AM 09/22/18 06:00 Intake Total 2280 ml Output Total 600 ml Balance 1680 ml Laboratory Data Labs 24H Laboratory Tests 2 09/22/18 05:46: Nucleated Red Blood Cells % (auto) 0.0, Immature Platelet Fraction 9.5, Anion Gap 4L, Glomerular Filtration Rate > 60.0, Blood Urea Nitrogen 5L, Creatinine 0.33L, Sodium Level 138, Potassium Level 4.9#, Chloride Level 107, Carbon Dioxide Level 27, Calcium Level 8.4L, Aspartate Amino Transf (AST/SGOT) 34, Alanine Aminotransferase (ALT/SGPT) 20, Alkaline Phosphatase 65, Total Bilirubin 0.3, Total Protein 6.0L, Albumin 2.1L, Magnesium Level 2.4, Troponin I 0.10#, Albumin/Globulin Ratio 0.54L CBC/BMP Laboratory Tests 09/22/18 05:46 Red Blood Count 3.42 L, Mean Corpuscular Volume 98.2 H, Mean Corpuscular Hemoglobin 33.6 H, Mean Corpuscular Hemoglobin Concent 34.2, Red Cell Distribution Width 13.9, Calcium Level 8.4 L, Aspartate Amino Transf (AST/SGOT) 34, Alanine Aminotransferase (ALT/SGPT) 20, Alkaline Phosphatase 65, Total Bilirubin 0.3, Total Protein 6.0 L, Albumin 2.1 L Microbiology Microbiology 09/17/18 Blood Culture - Final, Complete NO GROWTH AFTER 5 DAYS 09/17/18 Blood Culture - Final, Complete NO GROWTH AFTER 5 DAYS Discharge Medications Scheduled Folic Acid (Folic Acid) 1 Mg Tablet, 1 MG PO DAILY Levofloxacin (Levaquin) 750 Mg Tablet, 750 MG PO DAILY@06 Thiamine Hcl (Vitamin B-1) 100 Mg Tablet, 100 MG PO DAILY Scheduled PRN Meclizine HCl (Meclizine HCl) 25 Mg Tablet, 25 MG PO BIDP PRN for DIZZINESS Allergies Coded Allergies: Penicillins (Verified Allergy, Unknown, 09/17/18) DANNY SLOAN DO Sep 22, 2018 11:43
== END 2018-09-22 16:35 | disposition home or self-care (01) | DRG 139 ==
LOC: M ED 01:16 → M ED INP 08:15 → M ICU 10:06 → M MSPAV 09-18 14:40
PROVIDERS: ADMIT Internal Medicine; ATTEND Family Medicine
DX: J18.1 Lobar pneumonia, unspecified organism (principal); I21.A1 Myocardial infarction type 2; E87.2 Acidosis; E87.1 Hypo-osmolality and hyponatremia; F17.200 Nicotine dependence, unspecified, uncomplicated; F10.10 Alcohol abuse, uncomplicated; Z88.0 Allergy status to penicillin

== ENCOUNTER → 2018-11-05 | Outpatient (REF) | payer OTHER ==
[~2018-11-05] MED LIST changes: +LEVA750T7 PO; -LISI20TA PO; +LISI20TA19 PO; +MECL-86 PO
[2018-11-05 18:03] LABS: BASO % 0.7 % (0.0-1.0); EOS # 0.1 10^3/uL (0.0-0.5); HEMATOCRIT 52.4 % (42.0-52.0); HEMOGLOBIN 17.5 g/dl (13.5-17.5); LYMPH # 1.6 10^3/uL (1.5-5.0); LYMPH % 29.3 % (24.0-44.0); MEAN CORPUSCULAR HEMOGLOBIN 34.6 pg (27.0-33.0); MEAN CORPUSCULAR HGB CONC 33.4 g/dl (32.0-36.5); MEAN CORPUSCULAR VOLUME 103.6 fl (80.0-96.0); MONO # 0.7 10^3/uL (0.0-0.8); MONO % 11.8 % (0.0-5.0); NEUTROPHILS # 3.1 10^3/uL (1.5-8.5); PLATELET COUNT, AUTOMATED 274 10^3/uL (150-450); RED BLOOD COUNT 5.06 10^6/uL (4.30-6.10); WHITE BLOOD COUNT 5.5 10^3/uL (4.0-10.0)
[2018-11-05 18:23] LABS: ALBUMIN 3.4 GM/DL (3.2-5.2); ALT/SGPT 16 U/L (12-78); BILIRUBIN,TOTAL 0.3 MG/DL (0.2-1.0); BLOOD UREA NITROGEN 6 MG/DL (7-18); CALCIUM LEVEL 9.1 MG/DL (8.5-10.1); CARBON DIOXIDE LEVEL 27 MEQ/L (21-32); CHLORIDE LEVEL 109 MEQ/L (98-107); CHOLESTEROL LEVEL 159 MG/DL (<200); CHOLESTEROL RISK RATIO 2.839 (<5); CREATININE FOR GFR 0.64 MG/DL (0.70-1.30); FOLATE 7.9 NG/ML; FREE T4 0.91 NG/DL (0.76-1.46); GLOMERULAR FILTRATION RATE > 60.0 (>56); GLUCOSE, FASTING 101 MG/DL (70-100); HDL CHOLESTEROL 56 MG/DL (>40); IRON (FE) 54 UG/DL (65-175); LDL CHOLESTEROL 84 MG/DL (<100); NON-HDL-C 103 MG/DL; SODIUM LEVEL 142 MEQ/L (136-145); TOTAL 25(OH) VITAMIN D 11.3 NG/ML (30.0-100.0); TOTAL PROTEIN 6.4 GM/DL (6.4-8.2); TRIGLYCERIDES LEVEL 93 MG/DL (<150); VITAMIN B12 LEVEL 177 PG/ML
[2018-11-05 19:22] LABS: HEMOGLOBIN A1c 4.4 %
== END ==
LOC: M LAB REF 16:35
PROVIDERS: ATTEND Nurse Practitioner Family
DX: Z13.9 Encounter for screening, unspecified (principal); F10.20 Alcohol dependence, uncomplicated; I10 Essential (primary) hypertension

== ENCOUNTER 2018-12-06 17:58 | Emergency (ER) | payer OTHER, SELFPAY ==
[~2018-12-06] VITALS: Ht 175.3 cm; Wt 53.8 kg
[2018-12-06] MEDS ORDERED: OXAZEPAM 15 MG CAP PO ONE (18:45)
[2018-12-06] MEDS ORDERED: LORazepam 2 MG TAB PO PRN (18:45)
[2018-12-06 19:32] LABS: BASO % 0.3 % (0.0-1.0); EOS % 0.3 % (0.0-3.0); HEMATOCRIT 49.8 % (42.0-52.0); HEMOGLOBIN 17.2 g/dl (13.5-17.5); LYMPH # 1.3 10^3/uL (1.5-5.0); LYMPH % 12.7 % (24.0-44.0); MEAN CORPUSCULAR HEMOGLOBIN 35.9 pg (27.0-33.0); MEAN CORPUSCULAR HGB CONC 34.5 g/dl (32.0-36.5); MONO # 1.3 10^3/uL (0.0-0.8); MONO % 12.9 % (0.0-5.0); NEUTROPHILS # 7.6 10^3/uL (1.5-8.5); NEUTROPHILS % 73.5 % (36.0-66.0); PLATELET COUNT, AUTOMATED 354 10^3/uL (150-450); RED BLOOD COUNT 4.79 10^6/uL (4.30-6.10); WHITE BLOOD COUNT 10.4 10^3/uL (4.0-10.0)
--- NOTE | 2018-12-06 19:32 | REP ---
Portable chest x-ray: Single view: History: Chest pain. Comparison chest x-ray: September 22, 2018. Findings: Post thoracotomy sutures are noted in the left upper lung zone. There are biapical bullae. The largest of these is on the right. No infiltrate is seen. Heart is not enlarged. The patient is status post cervical spine fusion plating. Impression: Biapical bullous formation. Post thoracotomy changes on the left. Status post cervical spine fusion. Electronically Signed by Andi Deng MD 12/06/2018 08:02 P
[2018-12-06 20:15] LABS: ALBUMIN 2.5 GM/DL (3.2-5.2); ALT/SGPT 53 U/L (12-78); BILIRUBIN,DIRECT 0.2 MG/DL (0.0-0.2); BILIRUBIN,TOTAL 0.6 MG/DL (0.2-1.0); BLOOD UREA NITROGEN 4 MG/DL (7-18); CALCIUM LEVEL 8.4 MG/DL (8.5-10.1); CARBON DIOXIDE LEVEL 28 MEQ/L (21-32); CHLORIDE LEVEL 103 MEQ/L (98-107); CK-MB VALUE MASS < 1.0 NG/ML (<3.6); CPK CREATINE PHOSPHOKINASE 24 U/L (39-308); CREATININE FOR GFR 0.52 MG/DL (0.70-1.30); ETHYL ALCOHOL (ETHANOL) < 0.003 % (0.000-0.010); FREE T4 1.08 NG/DL (0.76-1.46); GLOMERULAR FILTRATION RATE > 60.0 (>56); GLUCOSE, FASTING 92 MG/DL (70-100); LIPASE 62 U/L (73-393); MB/CK RELATIVE INDEX 4.17 (< OR =4); POTASSIUM SERUM 4.8 MEQ/L (3.5-5.1); SODIUM LEVEL 137 MEQ/L (136-145); TOTAL PROTEIN 6.3 GM/DL (6.4-8.2); TROPONIN I < 0.02 NG/ML (< 0.10)
[2018-12-06] MEDS ORDERED: ISOVUE-370 76% 100ML VIAL (Q9967) As Ordered ONE (20:20)
[2018-12-06] MEDS ORDERED: THIAMINE 100 MG TAB PO SCH (21:00)
--- NOTE | 2018-12-06 21:30 | REPVR ---
PROCEDURE INFORMATION: Exam: CT Angiography Chest With Contrast Exam date and time: 12/06/2018 8:33 PM Clinical history: 53 years old, male; Chest pain; Additional info: Righ pleuritic chest pain TECHNIQUE: Imaging protocol: Computed tomographic angiography of the chest with intravenous contrast. 3D rendering: MIP reconstructed images were created and reviewed. Radiation optimization: All CT scans at this facility use at least one of these dose optimization techniques: automated exposure control; mA and/or kV adjustment per patient size (includes targeted exams where dose is matched to clinical indication); or iterative reconstruction. Contrast material: ISOVUE 370; Contrast volume: 75 ml; Contrast route: IV; COMPARISON: CT ANGIO CHEST 09/17/2018 2:16 AM FINDINGS: Pulmonary arteries: No filling defects in the pulmonary arteries to suggest pulmonary emboli. Aorta: Unremarkable. No aortic aneurysm. No aortic dissection. Lungs: Moderate centrilobular and paraseptal pulmonary emphysema. Couple small nodular opacities within the lungs, favor scarring, especially in the right upper lung. Couple tiny nodules along the fissures measuring up to 4 mm appear unchanged. Suture scarring in the left upper lung. Right lateral lower lobe 4 mm pulmonary nodule. Pleural space: Unremarkable. No pneumothorax. No pleural effusion. Heart: Small pericardial effusion. Liver: Hepatic steatosis. Lymph nodes: Unremarkable. No enlarged lymph nodes. Bones/joints: Unremarkable. No acute fracture. Soft tissues: Unremarkable. IMPRESSION: 1. No filling defects in the pulmonary arteries to suggest pulmonary emboli. 2. Small pericardial effusion. 3. Moderate centrilobular and paraseptal pulmonary emphysema. Electronically signed by: Miah Escalera On 12/06/2018 21:30:27 PM
[2018-12-06] MEDS ORDERED: GI COCKTAIL 50ML BTL(HYOSCYAMINE/MAALOX/LIDOCAINE VISCOUS)(1:3:1) PO ONE (21:45)
[2018-12-06] MEDS ORDERED: SUCRALFATE SUSP 1GM/10ML UD PO ONE (21:45)
[2018-12-06 21:50] LABS: INFLUENZA A AMPLIFICATION NEGATIVE (NEGATIVE); INFLUENZA B AMPLIFICATION NEGATIVE (NEGATIVE)
[2018-12-06 22:49] LABS: CK-MB VALUE MASS < 1.0 NG/ML (<3.6); CPK CREATINE PHOSPHOKINASE 25 U/L (39-308); TROPONIN I < 0.02 NG/ML (< 0.10)
[2018-12-06] MEDS ORDERED: PROT1TAB2 PO (23:33)
[2018-12-06 23:35] VITALS: BP 169/99
--- NOTE | 2018-12-07 07:43 | ECGEPIP ---
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
--- NOTE | 2018-12-07 07:53 | ECGEPIP ---
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
[2018-12-07] MEDS ORDERED: MULTIVITAMINS/MINERALS THERAP 1 TAB PO SCH (09:00)
[2018-12-07] MEDS ORDERED: FOLIC ACID 1 MG TAB PO SCH (09:00)
== END 2018-12-06 23:50 | disposition home or self-care (01) ==
LOC: M ED 17:58
DX: K29.70 Gastritis, unspecified, without bleeding (principal); J44.9 Chronic obstructive pulmonary disease, unspecified; F17.210 Nicotine dependence, cigarettes, uncomplicated; K21.9 Gastro-esophageal reflux disease without esophagitis; F10.10 Alcohol abuse, uncomplicated; G43.909 Migraine, unspecified, not intractable, without status migrainosus; I10 Essential (primary) hypertension; Z88.0 Allergy status to penicillin
CPT/HCPCS: 36415; 71045; 71275; 80048; 80076; 82550; 82553; 83605; 83690; 84439; 84443; 84484; 85025; 87040; 87502; 93005; 93041; 94760; 99285; G0480; Q9967

== ENCOUNTER → 2019-06-03 | Outpatient (REF) | payer OTHER, SELFPAY ==
[~2019-06-03] MED LIST changes: +OMEP1CAP73 PO; -OMEP20CA4 PO; +PROT1TAB2 PO
== END ==
LOC: M LAB REF 16:43
PROVIDERS: ATTEND Family Medicine
DX: J20.8 Acute bronchitis due to other specified organisms (principal)

== ENCOUNTER → 2019-08-04 | Outpatient (REF) | payer OTHER | LOC: M LAB REF 16:19 | PROVIDERS: ATTEND Family Medicine | DX: R43.2 Parageusia (principal) ==

== ENCOUNTER → 2019-08-17 | Outpatient (CLI) | payer OTHER ==
[~2019-08-17] MED LIST changes: +AMLO1TAB24 PO; -AMLO5TAB6 PO; -LISI20TA19 PO; +LISI20TA35 PO
--- NOTE | 2019-08-18 00:51 | REP ---
CHEST, TWO VIEWS: Two views of chest performed and compared to prior study of 09/22/2018 and 12/06/2018. There is slight elevation of the left hemidiaphragm with mild scattered fibrotic changes appearing stable. No acute infiltrate is seen. Heart and mediastinum are within normal limits and unchanged. Metallic plate and screws are seen in the lower cervical spine. IMPRESSION: Stable chronic findings. No acute pulmonary disease. Electronically Signed by Jose Dykes MD 08/18/2019 09:49 A
== END ==
LOC: M RAD 16:13
PROVIDERS: ATTEND Family Medicine
DX: J20.8 Acute bronchitis due to other specified organisms (principal); J98.6 Disorders of diaphragm

== ENCOUNTER 2021-03-25 14:01 | Emergency (ER) | payer OTHER ==
[~2021-03-25] VITALS: Ht 175.3 cm; Wt 59.0 kg
[~2021-03-25 14:01] MED LIST changes: +GABA-282 PO; -GABA-843 PO; -LISI-538 PO; +LISI20TA33 PO
[2021-03-25] MEDS ORDERED: MORPHINE 2 MG/ML 1ML VIAL (J2270) IV PRN (14:45)
[2021-03-25] MEDS ORDERED: ONDANSETRON 4MG/2ML VIAL IV ONE (14:45)
[2021-03-25] MEDS ORDERED: NS 1,000 ML IV ONE ×2 (14:45→16:05)
[2021-03-25 15:01] LABS: BASO % 0.4 % (0.0-1.0); EOS % 0.3 % (0.0-3.0); HEMATOCRIT 48.8 % (42.0-52.0); HEMOGLOBIN 16.9 g/dl (13.5-17.5); LYMPH # 1.1 10^3/uL (1.5-5.0); LYMPH % 11.8 % (24.0-44.0); MEAN CORPUSCULAR HEMOGLOBIN 34.5 pg (27.0-33.0); MEAN CORPUSCULAR HGB CONC 34.6 g/dl (32.0-36.5); MEAN CORPUSCULAR VOLUME 99.6 fl (80.0-96.0); NEUTROPHILS # 6.9 10^3/uL (1.5-8.5); NEUTROPHILS % 76.1 % (36.0-66.0); PLATELET COUNT, AUTOMATED 214 10^3/uL (150-450)
[2021-03-25 15:31] LABS: ALBUMIN 3.6 GM/DL (3.2-5.2); ALT/SGPT 40 U/L (12-78); BILIRUBIN,DIRECT 0.1 MG/DL (0.0-0.2); BILIRUBIN,TOTAL 0.4 MG/DL (0.2-1.0); BLOOD UREA NITROGEN 6 MG/DL (7-18); CALCIUM LEVEL 9.3 MG/DL (8.5-10.1); CARBON DIOXIDE LEVEL 27 MEQ/L (21-32); CHLORIDE LEVEL 102 MEQ/L (98-107); CREATININE FOR GFR 0.79 MG/DL (0.70-1.30); GLOMERULAR FILTRATION RATE > 60.0 (>56); GLUCOSE, FASTING 87 MG/DL (70-100); LIPASE 156 U/L (73-393); POTASSIUM SERUM 4.7 MEQ/L (3.5-5.1); SODIUM LEVEL 135 MEQ/L (136-145); TOTAL PROTEIN 7.3 GM/DL (6.4-8.2)
[2021-03-25 16:00] LABS: RSV AMPLIFICATION NEGATIVE (NEGATIVE)
[2021-03-25] MEDS: GASTROGRAFIN SOLUTION 30ML PO SCH ×2 (17:13→17:51)
[2021-03-25] MEDS ORDERED: ISOVUE-370 76% 100ML VIAL As Ordered ONE (18:35)
[2021-03-25 19:30] VITALS: BP 170/86
== END 2021-03-25 19:40 | disposition home or self-care (01) ==
LOC: M ED 14:01
DX: K76.0 Fatty (change of) liver, not elsewhere classified (principal); N28.1 Cyst of kidney, acquired; R10.9 Unspecified abdominal pain; I10 Essential (primary) hypertension; K21.9 Gastro-esophageal reflux disease without esophagitis; F10.11 Alcohol abuse, in remission; Z88.0 Allergy status to penicillin; Z79.899 Other long term (current) drug therapy; F17.210 Nicotine dependence, cigarettes, uncomplicated
CPT/HCPCS: 74176; 74177; 80048; 80076; 83605; 83690; 85025; 87631; 93005; 93041; 96361; 96374; 96375; 99285; J2270; J2405; Q9963; Q9967